=== PATIENT | male | born 1945 | race Caucasian/White ===

== ENCOUNTER 2018-07-15 21:35 | Inpatient (IN) | payer MEDICARE, OTHER | END 2018-07-17 15:28 | disposition home or self-care (01) | LOC: ER 21:35 → ED HOLD 23:52 → PCU 3S 07-16 07:25 | DX: A41.9 Sepsis, unspecified organism (principal); J18.9 Pneumonia, unspecified organism; N39.0 Urinary tract infection, site not specified; R65.20 Severe sepsis without septic shock ==

== ENCOUNTER 2018-09-13 16:15 | Emergency (ER) | payer MEDICARE, OTHER ==
[~2018-09-13] VITALS: Ht 175.3 cm; Wt 86.9 kg
[~2018-09-13 16:15] MED LIST: APIX5TAB3 PO; DILT120C51 PO; TERA5CAP4 PO
[2018-09-13 18:23] VITALS: BP 156/92
== END 2018-09-13 18:18 | disposition home or self-care (01) ==
LOC: ER 16:16
DX: S30.812A Abrasion of penis, initial encounter (principal); N36.8 Other specified disorders of urethra; I48.91 Unspecified atrial fibrillation; I25.10 Atherosclerotic heart disease of native coronary artery without angina pectoris; I25.2 Old myocardial infarction; Z98.61 Coronary angioplasty status; Z88.8 Allergy status to other drugs, medicaments and biological substances; Z79.01 Long term (current) use of anticoagulants; X58.XXXA Exposure to other specified factors, initial encounter; Y93.89 Activity, other specified; Y92.89 Other specified places as the place of occurrence of the external cause; Y99.8 Other external cause status
CPT/HCPCS: 99284

== ENCOUNTER 2018-11-03 15:01 | Emergency (ER) | payer MEDICARE, OTHER ==
[~2018-11-03] VITALS: Ht 175.3 cm; Wt 85.0 kg
[2018-11-03 15:06] VITALS: BP 117/75
[2018-11-03 16:05] LABS: CLARITY,URINE TURBID (Clear); COLOR,URINE YELLOW (Yellow); GLUCOSE, URINE NEGATIVE (Neg); KETONES,URINE NEGATIVE (Neg); LEUKOCYTE ESTERASE ,URINE LARGE (Neg); NITRITES, URINE NEGATIVE (Neg); OCCULT BLOOD,URINE TRACE-INTACT (Neg); PH,URINE >=9.0 (4.8-8.0); PROTEIN,URINE 30 mg/dl (Neg); UA COLLECTION TYPE FOLEY CATH; UROBILINOGEN,URINE 0.2 E.U/dL (0.2-1.0)
[2018-11-03 16:13] LABS: AMORPHOUS PHOSPHATES 3+; BACTERIA,URINE 1+ /HPF (Neg); MUCUS STRANDS NONE SEEN /LPF (Neg); RBC,URINE 0-2 /HPF (0-2); SQUAMOUS EPITHELIAL CELL,UR NONE SEEN /LPF (FEW); TRIPLE PHOSPHATE CRYST 3+ /HPF (NEGATIVE)
--- NOTE | 2018-11-06 09:44 | NUR ---
PT'S PROPERTY DISPOSAL MANAGER CALLED BACK, INFORMED THAT PT HAS A UTI AND THAT ABX's ARE NEEDED. RX FOR BACTRIM DS 160MG PO BID x7 DAYS CALLED INTO KAYLYNN ERICKSON AT [facility] PER REQUEST
== END 2018-11-03 16:46 | disposition home or self-care (01) ==
LOC: ER 15:01
DX: T83.031A Leakage of indwelling urethral catheter, initial encounter (principal); Z46.6 Encounter for fitting and adjustment of urinary device; I48.91 Unspecified atrial fibrillation; I25.10 Atherosclerotic heart disease of native coronary artery without angina pectoris; I25.2 Old myocardial infarction; Z98.61 Coronary angioplasty status; Z79.899 Other long term (current) drug therapy
CPT/HCPCS: 81001; 87088; 99283

== ENCOUNTER 2018-11-03 22:03 | Emergency (ER) | payer MEDICARE, OTHER ==
[~2018-11-03] VITALS: Ht 175.3 cm; Wt 85.8 kg
[2018-11-03 22:07] VITALS: BP 142/85
--- NOTE | 2018-11-03 22:58 | NUR ---
stat lock replaced
== END 2018-11-03 23:08 | disposition home or self-care (01) ==
LOC: ER 22:03
DX: T83.091A Other mechanical complication of indwelling urethral catheter, initial encounter (principal); I48.91 Unspecified atrial fibrillation; I25.2 Old myocardial infarction; I25.10 Atherosclerotic heart disease of native coronary artery without angina pectoris; Z98.61 Coronary angioplasty status; Z79.899 Other long term (current) drug therapy
CPT/HCPCS: 99281

== ENCOUNTER 2018-11-06 10:13 | Inpatient (IN) | payer MEDICARE, OTHER ==
[2018-11-01 11:07] LABS: BASOPHILS % (AUTO) 0.5 % (0-1); EOSINOPHILS # (AUTO) 0.3 X10'3 (0-0.9); EOSINOPHILS % (AUTO) 4.8 % (0-6); HEMATOCRIT 45.1 % (42.0-52.0); LYMPHOCYTES # (AUTO) 1.1 X10'3 (1.1-4.8); LYMPHOCYTES % (AUTO) 17.6 % (21-51); MEAN CORPUSCULAR HEMOGLOBIN 29.6 PG (27.0-31.0); MEAN CORPUSCULAR HGB CONC 33.2 g/dL (33.0-36.5); MEAN CORPUSCULAR VOLUME 89.1 FL (78-98); MEAN PLATELET VOLUME 7.4 FL (7.4-10.4); MONOCYTES # (AUTO) 0.7 X10'3 (0-0.9); MONOCYTES % (AUTO) 10.4 % (2-12); NEUTROPHILS # (AUTO) 4.3 X10'3 (1.8-7.7); NEUTROPHILS % (AUTO) 66.7 % (42-75); PLATELET COUNT 231 X10'3 (140-440); RED BLOOD COUNT 5.07 X10'6 (4.70-6.10); RED CELL DISTRIBUTION WIDTH 14.7 % (11.5-14.5); WHITE BLOOD COUNT 6.5 X10'3 (4.5-11.0)
[2018-11-01 11:14] LABS: PARTIAL THROMBOPLASTIN TIME 29 SECONDS (22-32)
[2018-11-01 11:17] LABS: ALANINE AMINOTRANSFERASE 18 U/L (12-78); ALBUMIN 3.3 G/DL (3.4-5.0); ALBUMIN/GLOBULIN RATIO 0.8 (1.1-1.5); ANION GAP 5 (8-16); ASPARTATE AMINO TRANSFERASE 12 U/L (10-37); BILIRUBIN,TOTAL 0.4 MG/DL (0.1-1.0); BLOOD UREA NITROGEN 20 MG/DL (7-18); CALCIUM 9.1 MG/DL (8.5-10.1); CHLORIDE 105 MMOL/L (99-107); GLUCOSE 100 MG/DL (70-104); POTASSIUM 4.5 MMOL/L (3.5-5.1); SODIUM 140 MMOL/L (135-145); TOTAL CARBON DIOXIDE 30.1 MMOL/L (24-32); TOTAL PROTEIN 7.3 G/DL (6.4-8.2); eGFR 73 ML/MIN
[2018-11-01 11:18] LABS: ALKALINE PHOSPHATASE 83 IU/L (46-116)
[2018-11-06] VITALS (12 sets, daily range): BP systolic 92–147; BP diastolic 59–87
[~2018-11-06] VITALS: Ht 175.3 cm; Wt 80.2 kg
[2018-11-06] MEDS ORDERED: LORazepam 0.5 MG tablet PO PRN (10:35)
[2018-11-06] MEDS ORDERED: diphenhydrAMINE 25mg capsule PO PRN (10:35)
[2018-11-06] MEDS ORDERED: nitroGLYCERIN 0.4mg SUBLingual tab SL PRN (10:35)
[2018-11-06] MEDS ORDERED: LISI-600 PO (10:41)
[2018-11-06] MEDS ORDERED: IBUP1TAB11 PO (10:41)
[2018-11-06] MEDS ORDERED: ASPI-611 PO (10:41)
[2018-11-06] MEDS ORDERED: iohexol 350MG/ML 100ml bottle IV ONE ×2 (12:32→13:00)
[2018-11-06] MEDS ORDERED: LIDOcaine 1% (10mg/ml)w/preservative injection 20ml MDV ONE (12:32)
[2018-11-06] MEDS ORDERED: fentaNYL/PF 50MCG/1 ML 2ML syringe ONE (12:32)
[2018-11-06] MEDS ORDERED: midazolam 2 mg/2 ml injection ONE ×2 (12:32→13:00)
[2018-11-06] MEDS ORDERED: iohexol 350 MG/ML 50ML vial IV ONE (12:32)
[2018-11-06] MEDS ORDERED: HYDROcodone/acetaminophen 10/325mg tab PO PRN ×2 (13:40→17:25)
[2018-11-06] MEDS ORDERED: proCHLORperazine 10 MG/2 ml inj IV PRN (13:40)
[2018-11-06] MEDS ORDERED: ondansetron/PF 4mg/2ml inj IV PRN ×2 (13:40→17:25)
[2018-11-06] MEDS ORDERED: OXAZEpam 15mg capsule PO PRN (13:40)
[2018-11-06] MEDS ORDERED: sodium chloride 0.45% 1,000 ML IV SCH (13:40)
[2018-11-06] MEDS ORDERED: HYDROcodone/acetaminophen 5mg/325mg tablet PO PRN ×2 (13:40→17:25)
[2018-11-06] MEDS ORDERED: normal saline 1000ml 1,000 ML IV SCH (17:23)
[2018-11-06] MEDS ORDERED: potassium Cl 20 mEq SR tablet PO PRN ×2 (17:25)
[2018-11-06] MEDS ORDERED: magnesium 4gm in 100ml NS 100 ML IV PRN (17:25)
[2018-11-06] MEDS ORDERED: magnesium Cl slow-release 64mg tablet PO PRN (17:25)
[2018-11-06] MEDS ORDERED: potassium CL 10mEq/100ml bag 100 ML IV PRN ×2 (17:25)
[2018-11-06] MEDS ORDERED: bisacodyl 10mg suppository rectal RC PRN (17:25)
[2018-11-06] MEDS ORDERED: mag hydrox/Alum hydrox/simeth 30ml oral suspension PO PRN (17:25)
[2018-11-06] MEDS ORDERED: magnesium 2GM in 50ml NS 50 ML IV PRN (17:25)
[2018-11-06] MEDS ORDERED: acetaminophen 325mg tablet PO PRN ×2 (17:25)
[2018-11-06] MEDS ORDERED: metoclopramide 5 mg/ml inj IV PRN (17:25)
[2018-11-06] MEDS ORDERED: magnesium hydroxide 30ml (MOM) UD suspension PO PRN (17:25)
[2018-11-06 20:58] LABS: HEMOGLOBIN A1C 6.1 % (4.5-6.2)
[2018-11-06] MEDS: terazosin 5mg capsule PO SCH (21:00)
[2018-11-06] MEDS ORDERED: temazepam 15mg capsule PO PRN (21:00)
[2018-11-06 21:03] LABS: BASOPHILS % (AUTO) 0.4 % (0-1); EOSINOPHILS # (AUTO) 0.5 X10'3 (0-0.9); EOSINOPHILS % (AUTO) 5.8 % (0-6); HEMATOCRIT 45.4 % (42.0-52.0); HEMOGLOBIN 15.1 g/dl (14.0-17.9); LYMPHOCYTES # (AUTO) 1.6 X10'3 (1.1-4.8); LYMPHOCYTES % (AUTO) 21.3 % (21-51); MEAN CORPUSCULAR HEMOGLOBIN 29.8 PG (27.0-31.0); MEAN CORPUSCULAR HGB CONC 33.3 g/dL (33.0-36.5); MEAN CORPUSCULAR VOLUME 89.5 FL (78-98); MEAN PLATELET VOLUME 7.3 FL (7.4-10.4); MONOCYTES % (AUTO) 12.7 % (2-12); NEUTROPHILS # (AUTO) 4.6 X10'3 (1.8-7.7); NEUTROPHILS % (AUTO) 59.8 % (42-75); PLATELET COUNT 231 X10'3 (140-440); RED BLOOD COUNT 5.08 X10'6 (4.70-6.10); RED CELL DISTRIBUTION WIDTH 14.6 % (11.5-14.5); WHITE BLOOD COUNT 7.7 X10'3 (4.5-11.0)
[2018-11-06 21:04] LABS: PARTIAL THROMBOPLASTIN TIME 29 SECONDS (22-32)
[2018-11-06 21:11] LABS: ALANINE AMINOTRANSFERASE 17 U/L (12-78); ALBUMIN 3.1 G/DL (3.4-5.0); ALBUMIN/GLOBULIN RATIO 0.8 (1.1-1.5); ALKALINE PHOSPHATASE 85 IU/L (46-116); ANION GAP 5 (8-16); ASPARTATE AMINO TRANSFERASE 15 U/L (10-37); BILIRUBIN,TOTAL 0.7 MG/DL (0.1-1.0); BLOOD UREA NITROGEN 17 MG/DL (7-18); BUN/CREATININE RATIO 15.9 (5.4-32.0); CALCIUM 8.6 MG/DL (8.5-10.1); CHLORIDE 106 MMOL/L (99-107); CREATININE 1.07 MG/DL (0.60-1.10); GLUCOSE 107 MG/DL (70-104); MAGNESIUM 1.9 MG/DL (1.5-2.4); PHOSPHORUS 3.2 MG/DL (2.3-4.5); POTASSIUM 3.9 MMOL/L (3.5-5.1); SODIUM 140 MMOL/L (135-145); TOTAL CARBON DIOXIDE 29.1 MMOL/L (24-32); TOTAL PROTEIN 7.1 G/DL (6.4-8.2); eGFR 68 ML/MIN
[2018-11-06 21:14] LABS: HIV ANTIBODY 1&2 RAPID NON-REACTIVE (Neg)
[2018-11-06] MEDS: ampicillin inj 1 GM in normal saline 100ml IV soln 100 ML IV SCH (21:42)
[2018-11-06] MEDS: NYSTATIN CREAM - 30GM TUBE TP SCH (21:52)
[2018-11-06] MEDS: carVEDilol 3.125mg tablet PO SCH (21:55)
[2018-11-06] MEDS: K and/or MAG REPLACEMENT MC SCH (21:56)
[2018-11-07 03:00] VITALS: BP 136/76
[2018-11-07] MEDS: ampicillin inj 1 GM in normal saline 100ml IV soln 100 ML IV SCH ×4 (03:07→20:50)
[2018-11-07 04:59] LABS: HEMATOCRIT 43.8 % (42.0-52.0); HEMOGLOBIN 14.5 g/dl (14.0-17.9); MEAN CORPUSCULAR HEMOGLOBIN 29.5 PG (27.0-31.0); MEAN CORPUSCULAR HGB CONC 33.1 g/dL (33.0-36.5); MEAN CORPUSCULAR VOLUME 89.3 FL (78-98); MEAN PLATELET VOLUME 7.4 FL (7.4-10.4); PLATELET COUNT 221 X10'3 (140-440); RED BLOOD COUNT 4.91 X10'6 (4.70-6.10); RED CELL DISTRIBUTION WIDTH 15.1 % (11.5-14.5)
[2018-11-07 05:13] LABS: ANION GAP 6 (8-16); BLOOD UREA NITROGEN 18 MG/DL (7-18); BUN/CREATININE RATIO 17.5 (5.4-32.0); CALCIUM 8.3 MG/DL (8.5-10.1); CHLORIDE 106 MMOL/L (99-107); CHOL/HDL RATIO 4.6 (0.00-4.99); CHOLESTEROL 146 MG/DL (0-200); CREATININE 1.03 MG/DL (0.60-1.10); GLUCOSE 115 MG/DL (70-104); HDL CHOLESTEROL 32 MG/DL (35-60); LDL CHOLESTEROL 104 MG/DL (50-100); MAGNESIUM 1.9 MG/DL (1.5-2.4); PHOSPHORUS 3.5 MG/DL (2.3-4.5); POTASSIUM 4.3 MMOL/L (3.5-5.1); SODIUM 141 MMOL/L (135-145); TOTAL CARBON DIOXIDE 29.1 MMOL/L (24-32); TRIGLYCERIDES 87 MG/DL (20-135); eGFR 71 ML/MIN
--- NOTE | 2018-11-07 06:19 | NUR ---
Patient in room MED 310. I have received report from Armin and had the opportunity to ask questions and assume patient care.
[2018-11-07 06:30] VITALS: BP 140/80
[2018-11-07] MEDS: K and/or MAG REPLACEMENT MC SCH (06:39)
[2018-11-07] MEDS: atorvastatin 20mg tablet PO SCH (07:09)
[2018-11-07] MEDS: aspirin 81mg tab.chew PO SCH (07:09)
[2018-11-07] MEDS: carVEDilol 3.125mg tablet PO SCH ×2 (07:09→20:31)
[2018-11-07] MEDS: lisinopril 20mg tablet PO SCH (07:10)
[2018-11-07] MEDS: NYSTATIN CREAM - 30GM TUBE TP SCH ×2 (07:13→20:31)
--- NOTE | 2018-11-07 10:22 | NUR ---
Nutrition consult: [facility]x indwelling gonzalez catheter for prostatic hypertrophy per MD note. S/p cath w/ EF 31% and not candidate for CABG at this time per MD note. Pt has no edema/wounds, mild weakness, and PO 90-100% first meals this admit per RN. Hepatitis panel pending. LBM 11/07. No nutrition concerns at this time; will monitor for PO hx this admit. Addendum: 11/07/18 at [address] Amended: Links added.
[2018-11-07 11:00] VITALS: BP 126/69
--- NOTE | 2018-11-07 12:55 | NUR ---
Wound care notified of "groin" wound, went to check with pt and pt's nurse reported it was just redness, and they had already gotten Nystatin for it. WOC not necessary at this time.
--- NOTE | 2018-11-07 16:12 | NUR ---
Problems reprioritized. Patient report given, questions answered & plan of care reviewed with Khoi.
--- NOTE | 2018-11-07 16:13 | NUR ---
Patient in room MED 310. I have received report from Charmaine COHN and had the opportunity to ask questions and assume patient care. Addendum: 11/07/18 at 1659 by Hannah Colon RN agree with previous RN's assessment. will continue to monitor
[2018-11-07 18:00] VITALS: BP 147/91
--- NOTE | 2018-11-07 18:14 | NUR ---
Problems reprioritized. Patient report given, questions answered & plan of care reviewed with Tonya COHN.
--- NOTE | 2018-11-07 18:30 | NUR ---
Patient in room MED 310. I have received report from Khoi COHN and had the opportunity to ask questions and assume patient care.
--- NOTE | 2018-11-07 18:35 | NUR ---
Page sent to Dr Anton informing him of the positive blood culture results from R arm Aerobic bottle positive at 21 hours Gram positive cocci in clusters taken on November 06.
[2018-11-07] MEDS: lactobacillus rhamnosus 10,000 MMU CELLS/CAPSULE PO SCH (20:30)
[2018-11-07] MEDS: apixaban 5mg tablet PO SCH (20:31)
[2018-11-07] MEDS: terazosin 5mg capsule PO SCH (20:31)
[2018-11-07 22:00] VITALS: BP 115/65
--- NOTE | 2018-11-07 22:13 | NUR ---
PAGER ID: [phone] MESSAGE: 310 pt Dada SERRANO has chronic Reyes present on admit but no MD order. Thank you. - Najma [id number]
[2018-11-08] MEDS: ampicillin inj 1 GM in normal saline 100ml IV soln 100 ML IV SCH ×3 (02:30→13:38)
--- NOTE | 2018-11-08 04:30 | NUR ---
PAGER ID: [phone] MESSAGE: 310 pt Dada has positive unilateral blood culture, no wounds anywhere. Do you want a redraw to rule out possible contamination error? Sensitivity not complete yet but on ABX for UTI. Also may need transfer if positive. - Najma [id number]
[2018-11-08 05:21] LABS: HEMATOCRIT 42.2 % (42.0-52.0); HEMOGLOBIN 14.1 g/dl (14.0-17.9); MEAN CORPUSCULAR HEMOGLOBIN 29.9 PG (27.0-31.0); MEAN CORPUSCULAR HGB CONC 33.3 g/dL (33.0-36.5); MEAN CORPUSCULAR VOLUME 89.8 FL (78-98); MEAN PLATELET VOLUME 7.3 FL (7.4-10.4); PLATELET COUNT 213 X10'3 (140-440); RED CELL DISTRIBUTION WIDTH 14.9 % (11.5-14.5); WHITE BLOOD COUNT 7.7 X10'3 (4.5-11.0)
[2018-11-08 05:32] LABS: ALBUMIN 2.9 G/DL (3.4-5.0); ANION GAP 8 (8-16); BLOOD UREA NITROGEN 17 MG/DL (7-18); BUN/CREATININE RATIO 15.2 (5.4-32.0); CALCIUM 8.7 MG/DL (8.5-10.1); CHLORIDE 105 MMOL/L (99-107); CREATININE 1.12 MG/DL (0.60-1.10); GLUCOSE 99 MG/DL (70-104); MAGNESIUM 1.9 MG/DL (1.5-2.4); PHOSPHORUS 3.1 MG/DL (2.3-4.5); POTASSIUM 3.8 MMOL/L (3.5-5.1); SODIUM 140 MMOL/L (135-145); TOTAL CARBON DIOXIDE 26.9 MMOL/L (24-32); eGFR 64 ML/MIN
[2018-11-08 06:00] VITALS: BP 118/91
--- NOTE | 2018-11-08 06:15 | NUR ---
Patient in room MED 310. I have received report from SUKI Castaneda and had the opportunity to ask questions and assume patient care.
--- NOTE | 2018-11-08 06:23 | NUR ---
Problems reprioritized. Patient report given, questions answered & plan of care reviewed with Art RN.
[2018-11-08] MEDS: K and/or MAG REPLACEMENT MC SCH (08:00)
[2018-11-08] MEDS ORDERED: atorvastatin 20mg tablet PO SCH (08:00)
[2018-11-08 08:24] LABS: HBSAG SCREEN Negative (Negative); HEP A AB, IGM Negative (Negative); HEP B CORE AB, IGM Negative (Negative); HEPATITIS C ANTIBODY <0.1 s/co ratio (0.0-0.9)
[2018-11-08] MEDS: lactobacillus rhamnosus 10,000 MMU CELLS/CAPSULE PO SCH ×2 (08:30→20:08)
[2018-11-08] MEDS: aspirin 81mg tab.chew PO SCH (08:30)
[2018-11-08] MEDS: carVEDilol 3.125mg tablet PO SCH ×2 (08:30→20:08)
[2018-11-08] MEDS: lisinopril 20mg tablet PO SCH (08:30)
[2018-11-08] MEDS: apixaban 5mg tablet PO SCH ×2 (08:30→20:08)
[2018-11-08] MEDS: atorvastatin 20mg tablet PO SCH (09:18)
[2018-11-08] MEDS: NYSTATIN CREAM - 30GM TUBE TP SCH ×2 (09:19→20:10)
[2018-11-08] MEDS: dutasteride 0.5 MG capsule PO SCH (09:19)
[2018-11-08 11:00] VITALS: BP 120/73
[2018-11-08 11:17] LABS: % FREE PSA 22.7 % (.); PSA, FREE 2.11 ng/mL
--- NOTE | 2018-11-08 13:32 | NUR ---
Problems reprioritized. Patient report given, questions answered & plan of care reviewed with SUKI JENSEN. PT WAS TRANSFERED WITH ALL PROPERTY TO SURGICAL ROOM 349A
--- NOTE | 2018-11-08 13:37 | NUR ---
Orientee documentation: I have reviewed and agree with all interventions, assessments performed and documented by SUKI Martell .
--- NOTE | 2018-11-08 13:46 | NUR ---
Received report from Jayshree. Pt transfered to room 349-A.
[2018-11-08 14:27] VITALS: BP 108/63
[2018-11-08 18:00] VITALS: BP 136/80
--- NOTE | 2018-11-08 18:10 | NUR ---
Patient in room [facility] 349. I have received report from Charmaine COHN and had the opportunity to ask questions and assume patient care.
--- NOTE | 2018-11-08 18:24 | NUR ---
Problems reprioritized. Patient report given, questions answered & plan of care reviewed with Socorro.
[2018-11-08] MEDS: amoxicillin 250mg capsule PO SCH ×2 (18:48→23:14)
[2018-11-08] MEDS: terazosin 5mg capsule PO SCH (20:08)
[2018-11-09] VITALS: BP 132/81
--- NOTE | 2018-11-09 00:07 | NUR ---
Problems reprioritized. Patient report given, questions answered & plan of care reviewed with Barb COHN.
[2018-11-09 05:18] LABS: HEMATOCRIT 42.7 % (42.0-52.0); HEMOGLOBIN 14.1 g/dl (14.0-17.9); MEAN CORPUSCULAR HEMOGLOBIN 29.8 PG (27.0-31.0); MEAN CORPUSCULAR HGB CONC 33.1 g/dL (33.0-36.5); MEAN CORPUSCULAR VOLUME 89.8 FL (78-98); MEAN PLATELET VOLUME 7.1 FL (7.4-10.4); PLATELET COUNT 217 X10'3 (140-440); RED BLOOD COUNT 4.75 X10'6 (4.70-6.10); RED CELL DISTRIBUTION WIDTH 14.6 % (11.5-14.5); WHITE BLOOD COUNT 8.1 X10'3 (4.5-11.0)
[2018-11-09 05:34] LABS: ALBUMIN 2.9 G/DL (3.4-5.0); ANION GAP 6 (8-16); BLOOD UREA NITROGEN 15 MG/DL (7-18); CALCIUM 8.7 MG/DL (8.5-10.1); CHLORIDE 107 MMOL/L (99-107); GLUCOSE 111 MG/DL (70-104); MAGNESIUM 1.9 MG/DL (1.5-2.4); POTASSIUM 4.4 MMOL/L (3.5-5.1); SODIUM 139 MMOL/L (135-145); TOTAL CARBON DIOXIDE 25.6 MMOL/L (24-32); eGFR 73 ML/MIN
--- NOTE | 2018-11-09 06:39 | NUR ---
Patient in room [facility] 349. I have received report from DYLAN COHN and had the opportunity to ask questions and assume patient care.
[2018-11-09 07:00] VITALS: BP 108/78
[2018-11-09] MEDS: K and/or MAG REPLACEMENT MC SCH (08:00)
[2018-11-09] MEDS: apixaban 5mg tablet PO SCH ×2 (08:17→20:44)
[2018-11-09] MEDS: atorvastatin 20mg tablet PO SCH (08:17)
[2018-11-09] MEDS: aspirin 81mg tab.chew PO SCH (08:17)
[2018-11-09] MEDS: lactobacillus rhamnosus 10,000 MMU CELLS/CAPSULE PO SCH ×2 (08:17→20:44)
[2018-11-09] MEDS: carVEDilol 3.125mg tablet PO SCH ×2 (08:17→20:44)
[2018-11-09] MEDS: lisinopril 20mg tablet PO SCH (08:18)
[2018-11-09] MEDS: amoxicillin 250mg capsule PO SCH ×3 (08:18→23:59)
[2018-11-09] MEDS: dutasteride 0.5 MG capsule PO SCH (08:19)
[2018-11-09] MEDS ORDERED: hydrALAZINE 20mg/ml inj. IV PRN (08:35)
[2018-11-09] MEDS: NYSTATIN CREAM - 30GM TUBE TP SCH ×2 (08:47→20:48)
[2018-11-09 12:04] VITALS: BP 115/60
--- NOTE | 2018-11-09 17:43 | NUR ---
Problems reprioritized. Patient report given, questions answered & plan of care reviewed with jose alberto abrams rn.
--- NOTE | 2018-11-09 18:30 | NUR ---
Patient in room [facility] 349. I have received report from ANNETTE COHN and had the opportunity to ask questions and assume patient care.
[2018-11-09 20:00] VITALS: BP 144/83
[2018-11-09] MEDS: terazosin 5mg capsule PO SCH (20:45)
[2018-11-09 21:07] VITALS: BP 144/83
[2018-11-10] VITALS: BP 112/76
[2018-11-10 05:39] LABS: HEMOGLOBIN 15.2 g/dl (14.0-17.9); MEAN CORPUSCULAR HEMOGLOBIN 30.1 PG (27.0-31.0); MEAN CORPUSCULAR HGB CONC 33.8 g/dL (33.0-36.5); MEAN CORPUSCULAR VOLUME 88.9 FL (78-98); MEAN PLATELET VOLUME 7.3 FL (7.4-10.4); PLATELET COUNT 224 X10'3 (140-440); RED BLOOD COUNT 5.06 X10'6 (4.70-6.10); RED CELL DISTRIBUTION WIDTH 14.8 % (11.5-14.5); WHITE BLOOD COUNT 8.3 X10'3 (4.5-11.0)
[2018-11-10 06:02] LABS: ALBUMIN 3.3 G/DL (3.4-5.0); ANION GAP 8 (8-16); BLOOD UREA NITROGEN 18 MG/DL (7-18); CALCIUM 8.9 MG/DL (8.5-10.1); CHLORIDE 107 MMOL/L (99-107); GLUCOSE 97 MG/DL (70-104); MAGNESIUM 2.1 MG/DL (1.5-2.4); PHOSPHORUS 3.6 MG/DL (2.3-4.5); POTASSIUM 4.3 MMOL/L (3.5-5.1); SODIUM 142 MMOL/L (135-145); TOTAL CARBON DIOXIDE 26.6 MMOL/L (24-32); eGFR 73 ML/MIN
--- NOTE | 2018-11-10 06:20 | NUR ---
Problems reprioritized. Patient report given, questions answered & plan of care reviewed with KENNETH COHN.
--- NOTE | 2018-11-10 06:25 | NUR ---
Patient in room [facility] 349. I have received report from Elliott COHN and had the opportunity to ask questions and assume patient care.
[2018-11-10 07:00] VITALS: BP 99/66
[2018-11-10] MEDS: atorvastatin 20mg tablet PO SCH (07:54)
[2018-11-10] MEDS: amoxicillin 250mg capsule PO SCH ×3 (07:54→23:20)
[2018-11-10] MEDS: lactobacillus rhamnosus 10,000 MMU CELLS/CAPSULE PO SCH ×2 (07:54→22:06)
[2018-11-10] MEDS: aspirin 81mg tab.chew PO SCH (07:54)
[2018-11-10] MEDS: dutasteride 0.5 MG capsule PO SCH (07:54)
[2018-11-10] MEDS: apixaban 5mg tablet PO SCH ×2 (07:54→22:06)
[2018-11-10] MEDS: lisinopril 20mg tablet PO SCH (07:59)
[2018-11-10] MEDS: carVEDilol 3.125mg tablet PO SCH ×2 (07:59→22:10)
[2018-11-10] MEDS: K and/or MAG REPLACEMENT MC SCH (08:00)
[2018-11-10] MEDS: NYSTATIN CREAM - 30GM TUBE TP SCH ×2 (08:00→22:07)
[2018-11-10 12:05] VITALS: BP 136/75
--- NOTE | 2018-11-10 17:55 | NUR ---
patient seen by Dr sharma , and DR Serna,vascular studies were ordered 11/09/18 but not done. bioinformatics research technician paged, stated he will come and do studies. Not done at time of report. patient had visitor today. Stated that he lives in [facility] and has done for 2 years. Tearful at times recalling his memories of [place] when he was 19. private household worker called who spent significant time with patient. Appears stable at time of report.
--- NOTE | 2018-11-10 18:01 | NUR ---
Problems reprioritized. Patient report given, questions answered & plan of care reviewed with Pat COHN.
--- NOTE | 2018-11-10 18:20 | NUR ---
Patient in room [facility] 349. I have received report from Anastasia COHN and had the opportunity to ask questions and assume patient care.
[2018-11-10 20:30] VITALS: BP 162/93
[2018-11-10 22:10] VITALS: BP 148/94
[2018-11-10] MEDS: terazosin 5mg capsule PO SCH (22:10)
[2018-11-11] VITALS: BP 127/70
[2018-11-11 05:30] LABS: HEMATOCRIT 41.5 % (42.0-52.0); HEMOGLOBIN 13.9 g/dl (14.0-17.9); MEAN CORPUSCULAR HEMOGLOBIN 30.1 PG (27.0-31.0); MEAN CORPUSCULAR HGB CONC 33.5 g/dL (33.0-36.5); MEAN CORPUSCULAR VOLUME 89.8 FL (78-98); MEAN PLATELET VOLUME 7.2 FL (7.4-10.4); PLATELET COUNT 218 X10'3 (140-440); RED BLOOD COUNT 4.63 X10'6 (4.70-6.10); RED CELL DISTRIBUTION WIDTH 14.9 % (11.5-14.5); WHITE BLOOD COUNT 7.9 X10'3 (4.5-11.0)
[2018-11-11 05:40] LABS: ALBUMIN 2.8 G/DL (3.4-5.0); ANION GAP 9 (8-16); BLOOD UREA NITROGEN 20 MG/DL (7-18); BUN/CREATININE RATIO 20.2 (5.4-32.0); CALCIUM 8.2 MG/DL (8.5-10.1); CHLORIDE 109 MMOL/L (99-107); CREATININE 0.99 MG/DL (0.60-1.10); GLUCOSE 126 MG/DL (70-104); PHOSPHORUS 3.7 MG/DL (2.3-4.5); SODIUM 142 MMOL/L (135-145); TOTAL CARBON DIOXIDE 24.1 MMOL/L (24-32); eGFR 74 ML/MIN
--- NOTE | 2018-11-11 06:15 | NUR ---
Problems reprioritized. Patient report given, questions answered & plan of care reviewed with Renae COHN.
[2018-11-11 07:30] VITALS: BP 137/87
[2018-11-11] MEDS: aspirin 81mg tab.chew PO SCH (07:53)
[2018-11-11] MEDS: amoxicillin 250mg capsule PO SCH ×2 (07:53→16:10)
[2018-11-11] MEDS: dutasteride 0.5 MG capsule PO SCH (07:53)
[2018-11-11] MEDS: atorvastatin 20mg tablet PO SCH (07:53)
[2018-11-11] MEDS: apixaban 5mg tablet PO SCH (07:54)
[2018-11-11] MEDS: lactobacillus rhamnosus 10,000 MMU CELLS/CAPSULE PO SCH ×2 (07:54→20:42)
[2018-11-11] MEDS: carVEDilol 3.125mg tablet PO SCH ×2 (07:54→20:42)
[2018-11-11] MEDS: lisinopril 20mg tablet PO SCH (07:54)
[2018-11-11] MEDS: K and/or MAG REPLACEMENT MC SCH (07:54)
[2018-11-11] MEDS: NYSTATIN CREAM - 30GM TUBE TP SCH ×2 (07:54→20:43)
[2018-11-11 11:47] VITALS: BP 95/71
--- NOTE | 2018-11-11 18:29 | NUR ---
Problems reprioritized. Patient report given, questions answered & plan of care reviewed with KIMMY Harris RN.
--- NOTE | 2018-11-11 18:37 | NUR ---
Patient in room [facility] 349. I have received report from SUKI OCONNELL and had the opportunity to ask questions and assume patient care. Addendum: 11/11/18 at 1837 by Stacey Terry RN Amended: Links added.
[2018-11-11 20:00] VITALS: BP 138/78
[2018-11-11] MEDS: terazosin 5mg capsule PO SCH (20:42)
[2018-11-12] VITALS: BP 123/64
[2018-11-12] MEDS: amoxicillin 250mg capsule PO SCH ×3 (01:31→16:36)
--- NOTE | 2018-11-12 05:28 | NUR ---
patient noted using the restroom twice to urinate and his gown and dry flow wet/soaked with urine, F/C checked, balloon was deflated and was inflated, f/c functioning appropriately at this time
--- NOTE | 2018-11-12 06:36 | NUR ---
Problems reprioritized. Patient report given, questions answered & plan of care reviewed with SUKI Oconnor. Addendum: 11/12/18 at 0637 by Stacey Terry RN Amended: Links added.
--- NOTE | 2018-11-12 06:45 | NUR ---
Patient in room [facility] 349. I have received report from Keisha Harris RN and had the opportunity to ask questions and assume patient care.
[2018-11-12 07:00] VITALS: BP 145/84
[2018-11-12] MEDS: lisinopril 20mg tablet PO SCH (07:36)
[2018-11-12] MEDS: dutasteride 0.5 MG capsule PO SCH (07:36)
[2018-11-12] MEDS: lactobacillus rhamnosus 10,000 MMU CELLS/CAPSULE PO SCH ×2 (07:37→22:24)
[2018-11-12] MEDS: carVEDilol 3.125mg tablet PO SCH ×2 (07:37→22:23)
[2018-11-12] MEDS: atorvastatin 20mg tablet PO SCH (07:37)
[2018-11-12] MEDS: aspirin 81mg tab.chew PO SCH (07:38)
[2018-11-12] MEDS: K and/or MAG REPLACEMENT MC SCH (07:39)
[2018-11-12] MEDS ORDERED: ringers solution, lacted 1,000 ML IV ONE (08:15)
[2018-11-12] MEDS: NYSTATIN CREAM - 30GM TUBE TP SCH ×2 (08:47→20:00)
[2018-11-12 09:00] LABS: ABG BASE EXCESS -4.1 mmol/L (-2.0-3.0); ABG HCO3 18.9 mmol/L (22.0-26.0); ABG OXYGEN SATURATION 96.7 % (95-98); ABG PCO2 (T) 29.4 mmHg (35.0-45.0); ABG PH (T) 7.425 (7.350-7.450); ABG PO2 (T) 87.7 mmHg (83-108); ALLEN'S TEST Positive; FCOHb 0.9 % (0.5-1.5); FMetHb 0.2 % (0.3-1.12); FO2Hb 95.6 % (94-100); TOTAL HEMOGLOBIN 14.7 G/dl (14.0-17.9)
--- NOTE | 2018-11-12 10:07 | NUR ---
Initial: Pt admit with CAD with abnormal stress test and cardiac catheterization, UTI, and ALOC. Pt on a heart healthy diet with documented 75-100% PO intake throughout LOS meeting nutrient needs. LBM 11/11. No edema or wounds. No nutrition diagnosis at this time. Will continue to follow. Recommendations: 1) Continue with heart healthy diet 2) Wt per rx Addendum: 11/12/18 at [address] Amended: Links added.
--- NOTE | 2018-11-12 10:12 | NUR ---
patient was seen by Dr Palomares, is to be transferred to ACCE unit for further preparation for CABG tomorrow. Report called to Isabel COHN
--- NOTE | 2018-11-12 10:41 | NUR ---
PATIENT TRANSFERRED TO ACCE UNIT , IN STABLE CONDITION.
[2018-11-12 11:00] VITALS: BP 123/71
[2018-11-12 15:00] VITALS: BP 115/46
--- NOTE | 2018-11-12 17:56 | NUR ---
Orienteer documentation: I have reviewed and agree with all interventions, assessments performed and documented by Isabel COHN.
[2018-11-12 18:00] VITALS: BP 139/85
--- NOTE | 2018-11-12 18:15 | NUR ---
Patient in room MED 313. I have received report from SUKI Roberts and had the opportunity to ask questions and assume patient care.
--- NOTE | 2018-11-12 21:15 | NUR ---
CALLED DR. DELANEY TO CLARIFY THAT PATIENT'S SURGERY IS NOT TOMORROW MORNING. HE STATED THAT THE SURGERY WILL BE SUNDAY MORNING.
[2018-11-12 22:00] VITALS: BP 124/63
[2018-11-12] MEDS: terazosin 5mg capsule PO SCH (22:23)
[2018-11-13] MEDS: amoxicillin 250mg capsule PO SCH ×3 (01:17→15:51)
[2018-11-13] MEDS: NYSTATIN CREAM - 30GM TUBE TP SCH ×3 (01:18→20:00)
--- NOTE | 2018-11-13 01:26 | NUR ---
Patient refused nystatin cream applications. He stated that he did not have it for multiple days.
[2018-11-13 02:00] VITALS: BP 110/60
[2018-11-13] MEDS ORDERED: ringers solution, lacted 1,000 ML IV ONE (05:30)
[2018-11-13 05:55] LABS: ANION GAP 7 (8-16); BLOOD UREA NITROGEN 15 MG/DL (7-18); CALCIUM 8.4 MG/DL (8.5-10.1); CHLORIDE 108 MMOL/L (99-107); GLUCOSE 112 MG/DL (70-104); POTASSIUM 3.9 MMOL/L (3.5-5.1); SODIUM 140 MMOL/L (135-145); TOTAL CARBON DIOXIDE 24.8 MMOL/L (24-32); eGFR 73 ML/MIN
[2018-11-13 05:58] LABS: PARTIAL THROMBOPLASTIN TIME 30 SECONDS (22-32)
[2018-11-13] MEDS ORDERED: famotidine 20mg tablet PO ONE (06:00)
[2018-11-13] MEDS ORDERED: LORazepam 2 mg/ml vial IV ONE (06:00)
[2018-11-13 06:01] LABS: HEMATOCRIT 43.1 % (42.0-52.0); HEMOGLOBIN 14.5 g/dl (14.0-17.9); MEAN CORPUSCULAR HEMOGLOBIN 29.8 PG (27.0-31.0); MEAN CORPUSCULAR HGB CONC 33.6 g/dL (33.0-36.5); MEAN CORPUSCULAR VOLUME 88.7 FL (78-98); MEAN PLATELET VOLUME 7.3 FL (7.4-10.4); PLATELET COUNT 215 X10'3 (140-440); RED BLOOD COUNT 4.86 X10'6 (4.70-6.10); RED CELL DISTRIBUTION WIDTH 14.7 % (11.5-14.5); WHITE BLOOD COUNT 8.7 X10'3 (4.5-11.0)
--- NOTE | 2018-11-13 06:29 | NUR ---
Problems reprioritized. Patient report given, questions answered & plan of care reviewed with Art, RN.
[2018-11-13] MEDS: lisinopril 20mg tablet PO SCH (07:54)
[2018-11-13] MEDS: dutasteride 0.5 MG capsule PO SCH (07:54)
[2018-11-13] MEDS: carVEDilol 3.125mg tablet PO SCH ×2 (07:54→20:41)
[2018-11-13] MEDS: lactobacillus rhamnosus 10,000 MMU CELLS/CAPSULE PO SCH ×2 (07:54→20:42)
[2018-11-13] MEDS: atorvastatin 20mg tablet PO SCH (07:54)
[2018-11-13] MEDS: aspirin 81mg tab.chew PO SCH (07:54)
[2018-11-13] MEDS: K and/or MAG REPLACEMENT MC SCH (08:00)
[2018-11-13] MEDS ORDERED: insulin regular, human 100 UNIT in normal saline 100ml IV soln 100 ML IV SCH ×2 (10:16)
[2018-11-13] MEDS ORDERED: insulin glargine (Lantus) pen - multi-dose SQ PRN (10:20)
[2018-11-13] MEDS ORDERED: gabapentin 400mg capsule PO ONE (10:20)
[2018-11-13] MEDS ORDERED: NUT.TX.IMPAIRED DIGEST FXN (Ensure Clear) 237 ML PO ONE (10:20)
[2018-11-13] MEDS ORDERED: MESSAGE TO NURSING PO ONE ×4 (10:20)
[2018-11-13] MEDS ORDERED: dextrose 50%-water 50ml dispensing syringe IV PRN (10:20)
[2018-11-13] MEDS ORDERED: ceFAZolin inj. 2,000 MG in dextrose 5%-water 100 ML IV SCH (10:55)
[2018-11-13 11:00] VITALS: BP 108/75
[2018-11-13 11:21] LABS: HEMOGLOBIN 14.3 g/dl (14.0-17.9); MEAN CORPUSCULAR HEMOGLOBIN 29.7 PG (27.0-31.0); MEAN CORPUSCULAR HGB CONC 33.3 g/dL (33.0-36.5); MEAN CORPUSCULAR VOLUME 89.1 FL (78-98); MEAN PLATELET VOLUME 7.3 FL (7.4-10.4); PLATELET COUNT 225 X10'3 (140-440); RED BLOOD COUNT 4.83 X10'6 (4.70-6.10); RED CELL DISTRIBUTION WIDTH 14.9 % (11.5-14.5); WHITE BLOOD COUNT 8.4 X10'3 (4.5-11.0)
[2018-11-13 11:30] LABS: PARTIAL THROMBOPLASTIN TIME 30 SECONDS (22-32)
[2018-11-13 11:43] LABS: ANION GAP 6 (8-16); BLOOD UREA NITROGEN 16 MG/DL (7-18); BUN/CREATININE RATIO 16.5 (5.4-32.0); CALCIUM 8.2 MG/DL (8.5-10.1); CHLORIDE 108 MMOL/L (99-107); CREATININE 0.97 MG/DL (0.60-1.10); GLUCOSE 101 MG/DL (70-104); POTASSIUM 4.2 MMOL/L (3.5-5.1); SODIUM 140 MMOL/L (135-145); TOTAL CARBON DIOXIDE 25.8 MMOL/L (24-32); eGFR 76 ML/MIN
[2018-11-13 15:00] VITALS: BP 116/61
--- NOTE | 2018-11-13 17:53 | NUR ---
Orientee documentation: I have reviewed and agree with all interventions, assessments performed and documented by SUKI Martell .
[2018-11-13 18:00] VITALS: BP 120/84
--- NOTE | 2018-11-13 18:15 | NUR ---
Patient in room MED 313. I have received report from Claudy RN and SUKI Martell (orienteer) and had the opportunity to ask questions and assume patient care.
--- NOTE | 2018-11-13 18:18 | NUR ---
Problems reprioritized. Patient report given, questions answered & plan of care reviewed with SUKI Doll.
[2018-11-13] MEDS ORDERED: mupirocin 2% ointment 22GM NS SCH (20:00)
[2018-11-13] MEDS ORDERED: metoprolol tartrate 12.5mg (1/2 tablet) PO SCH (20:00)
[2018-11-13] MEDS: terazosin 5mg capsule PO SCH (20:41)
[2018-11-13 22:00] VITALS: BP 132/76
[2018-11-14] VITALS (21 sets, daily range): BP systolic 91–129; BP diastolic 52–74
[2018-11-14] MEDS: amoxicillin 250mg capsule PO SCH ×2 (02:07→08:00)
[2018-11-14] MEDS ORDERED: epiNEPHrine 1 mg/ml inj ONE (05:10)
[2018-11-14] MEDS ORDERED: ceFAZolin 1000mg inj ONE (05:10)
[2018-11-14] MEDS ORDERED: ROPIVAcaine 0.5% (5mg/ml) 30ml vial ONE (05:10)
[2018-11-14] MEDS ORDERED: insulin glargine (Lantus) pen - multi-dose SQ PRN (05:30)
[2018-11-14] MEDS ORDERED: dextrose 50%-water 50ml dispensing syringe IV PRN ×2 (05:30→10:05)
[2018-11-14] MEDS ORDERED: metoprolol tartrate 12.5mg (1/2 tablet) PO SCH (05:30)
[2018-11-14] MEDS ORDERED: famotidine 20mg tablet PO ONE ×2 (05:30→05:45)
[2018-11-14] MEDS ORDERED: mupirocin 2% ointment 22GM NS SCH (05:30)
[2018-11-14] MEDS ORDERED: LORazepam 2 mg/ml vial IV ONE (05:30)
[2018-11-14] MEDS ORDERED: ceFAZolin inj. 2,000 MG in dextrose 5%-water 100 ML IV SCH (05:30)
[2018-11-14] MEDS ORDERED: insulin regular, human 100 UNIT in normal saline 100ml IV soln 100 ML IV SCH ×2 (05:30)
[2018-11-14] MEDS ORDERED: ringers solution, lacted 1,000 ML IV ONE (05:30)
[2018-11-14 06:24] LABS: HEMATOCRIT 41.8 % (42.0-52.0); HEMOGLOBIN 14.1 g/dl (14.0-17.9); MEAN CORPUSCULAR HGB CONC 33.7 g/dL (33.0-36.5); MEAN CORPUSCULAR VOLUME 89.1 FL (78-98); MEAN PLATELET VOLUME 7.3 FL (7.4-10.4); PLATELET COUNT 208 X10'3 (140-440); RED BLOOD COUNT 4.69 X10'6 (4.70-6.10); RED CELL DISTRIBUTION WIDTH 14.7 % (11.5-14.5); WHITE BLOOD COUNT 7.5 X10'3 (4.5-11.0)
--- NOTE | 2018-11-14 06:30 | NUR ---
Patient in room MED 313. I have received report from Jackeline COHN and had the opportunity to ask questions and assume patient care.
[2018-11-14 06:31] LABS: PARTIAL THROMBOPLASTIN TIME 29 SECONDS (22-32)
--- NOTE | 2018-11-14 06:31 | NUR ---
Problems reprioritized. Patient report given, questions answered & plan of care reviewed with SUKI Gomes.
[2018-11-14 06:36] LABS: ALBUMIN 2.9 G/DL (3.4-5.0); ANION GAP 8 (8-16); BLOOD UREA NITROGEN 15 MG/DL (7-18); BUN/CREATININE RATIO 14.2 (5.4-32.0); CALCIUM 8.5 MG/DL (8.5-10.1); CHLORIDE 106 MMOL/L (99-107); CREATININE 1.06 MG/DL (0.60-1.10); GLUCOSE 159 MG/DL (70-104); MAGNESIUM 1.9 MG/DL (1.5-2.4); POTASSIUM 3.9 MMOL/L (3.5-5.1); SODIUM 140 MMOL/L (135-145); TOTAL CARBON DIOXIDE 25.6 MMOL/L (24-32); eGFR 68 ML/MIN
--- NOTE | 2018-11-14 06:49 | NUR ---
pt to [facility]
[2018-11-14] MEDS ORDERED: NORepinephrine bitartrate 8 MG in NS 250 ML BAG (32 mcg/ml) IV ONE (06:52)
[2018-11-14] MEDS ORDERED: aminocaproic acid 250 MG/1 ML inj. ONE ×2 (06:52→07:00)
[2018-11-14] MEDS ORDERED: protamine sulf. 10mg/ml inj. IV ONE (06:52)
[2018-11-14] MEDS ORDERED: sevoflurane 250ml liquid IH ONE (06:52)
[2018-11-14] MEDS ORDERED: midazolam 2 mg/2 ml injection ONE (06:58)
[2018-11-14] MEDS ORDERED: SUFENTANIL CITRATE 50 MCG/ML 2ml ampule IV ONE (06:58)
[2018-11-14] MEDS ORDERED: LIDOcaine 1%/PF 5ML 10 MG/ML VIAL ONE (06:59)
[2018-11-14] MEDS ORDERED: propofol inj 20 ML IV ONE (06:59)
[2018-11-14] MEDS ORDERED: rocuronium 10mg/ml inj IV ONE ×3 (06:59)
[2018-11-14] MEDS ORDERED: sodium bicarbonate (8.4%) inj. 1 MEQ/ML ML ONE (07:00)
[2018-11-14] MEDS ORDERED: phenylephrine 10mg/ml inj. ONE ×2 (07:00→08:27)
[2018-11-14] MEDS ORDERED: heparin 10,000 units/1 ML INJ ONE (07:00)
[2018-11-14] MEDS ORDERED: LIDOcaine 2% (20 mg/ml) 5ml cardiac syringe ONE (07:00)
[2018-11-14] MEDS ORDERED: magnesium sulf 1 GM/2 ML ONE (07:00)
[2018-11-14] MEDS ORDERED: potassium Cl 2 mEq/ml inj IV ONE (07:00)
[2018-11-14] MEDS ORDERED: heparin 1,000 units/ml 10ml inj ONE (07:00)
[2018-11-14] MEDS ORDERED: methylPREDNISolone sod succ 1000mg vial ONE (07:00)
[2018-11-14] MEDS ORDERED: calcium chloride 100 MG/1 ML inj IV ONE (07:00)
[2018-11-14] MEDS ORDERED: albumin (human) 25% 100 ML IV solution IV ONE (07:00)
[2018-11-14] MEDS ORDERED: albumin (Human) 5% 250ml 250 ML IV ONE ×2 (07:31)
[2018-11-14] MEDS ORDERED: ePHEDrine 50MG/ML INJ. ONE (07:32)
[2018-11-14] MEDS ORDERED: LIDOcaine 1% 30ml preserv. free vial ONE (07:52)
[2018-11-14 07:56] LABS: ABG BASE EXCESS -1.6 mmol/L (-2.0-3.0); ABG HCO3 22.4 mmol/L (22.0-26.0); ABG OXYGEN SATURATION 99.5 % (95-98); ABG PCO2 35.7 mmHg (35.0-45.0); ABG PH 7.416 (7.350-7.450); ABG PO2 245.3 mmHg (60.0-100.0); CL (ABG) 105 mmol/L (99-107); FCOHb 0.7 % (0.5-1.5); FMetHb 0.1 % (0.3-1.12); FO2Hb 98.7 % (94-100); GLUCOSE (ABG) 100 mg/dl (70-104); K (ABG) 3.8 mmol/L (3.3-5.1); NA (ABG) 138 mmol/L (135-145); TOTAL HEMOGLOBIN 13.3 G/dl (14.0-17.9)
[2018-11-14] MEDS: lisinopril 20mg tablet PO SCH (08:00)
[2018-11-14] MEDS: carVEDilol 3.125mg tablet PO SCH (08:00)
[2018-11-14] MEDS: K and/or MAG REPLACEMENT MC SCH (08:00)
[2018-11-14] MEDS: lactobacillus rhamnosus 10,000 MMU CELLS/CAPSULE PO SCH (08:00)
[2018-11-14] MEDS: atorvastatin 20mg tablet PO SCH (08:00)
[2018-11-14] MEDS: aspirin 81mg tab.chew PO SCH (08:00)
[2018-11-14] MEDS: dutasteride 0.5 MG capsule PO SCH (08:00)
[2018-11-14] MEDS: NYSTATIN CREAM - 30GM TUBE TP SCH (08:00)
[2018-11-14] MEDS ORDERED: ESOMEPRAZOLE 40 MG VIAL IV ONE (08:00)
[2018-11-14 08:35] LABS: ABG BASE EXCESS -1.3 mmol/L (-2.0-3.0); ABG HCO3 22.6 mmol/L (22.0-26.0); ABG OXYGEN SATURATION 99.4 % (95-98); ABG PCO2 34.7 mmHg (35.0-45.0); ABG PH 7.431 (7.350-7.450); ABG PO2 341.9 mmHg (60.0-100.0); CL (ABG) 101 mmol/L (99-107); FCOHb 0.3 % (0.5-1.5); FO2Hb 99.1 % (94-100); GLUCOSE (ABG) 93 mg/dl (70-104); IONIZED CA (ABG) 0.96 mmol/L (1.03-1.32); K (ABG) 3.7 mmol/L (3.3-5.1); NA (ABG) 134 mmol/L (135-145); TOTAL HEMOGLOBIN 9.8 G/dl (14.0-17.9)
[2018-11-14 09:05] LABS: ACT @ 1.70 U 323 SEC (193-297); ACT @ 2.84 U 448 SEC (260-420); BASELINE ACT 148 SEC (101-148); PATIENT WEIGHT 85.0k KG
[2018-11-14 09:15] LABS: ABG BASE EXCESS VENOUS -3.1 mmol/L; ABG HCO3 VENOUS 21.1 mmol/L; ABG PCO2 VENOUS 34.5 mmHg; ABG PO2 VENOUS 48.9 mmHg; CL (ABG) 101 mmol/L (99-107); FCOHb VENOUS 0.6 %; FHHb VENOUS 17.3 %; FMetHb VENOUS 0.1 %; GLUCOSE (ABG) 101 mg/dl (70-104); IONIZED CA (ABG) 1.01 mmol/L (1.03-1.32); K (ABG) 4.2 mmol/L (3.3-5.1); NA (ABG) 135 mmol/L (135-145); TOTAL HEMOGLOBIN 9.9 G/dl (14.0-17.9)
[2018-11-14 09:41] LABS: ABG BASE EXCESS VENOUS -0.4 mmol/L; ABG HCO3 VENOUS 23.6 mmol/L; ABG PCO2 VENOUS 36.5 mmHg; ABG PO2 VENOUS 46.2 mmHg; CL (ABG) 100 mmol/L (99-107); FCOHb VENOUS 0.6 %; FHHb VENOUS 18.4 %; FMetHb VENOUS 0.1 %; FO2Hb VENOUS 80.9 %; GLUCOSE (ABG) 111 mg/dl (70-104); IONIZED CA (ABG) 1.19 mmol/L (1.03-1.32); K (ABG) 4.2 mmol/L (3.3-5.1); NA (ABG) 135 mmol/L (135-145); TOTAL HEMOGLOBIN 10.3 G/dl (14.0-17.9)
[2018-11-14] MEDS ORDERED: MESSAGE TO NURSING PO ONE (10:00)
[2018-11-14] MEDS ORDERED: NORepinephrine 8mg/ 250ml NS 250 ML IV PRN (10:01)
[2018-11-14] MEDS ORDERED: niCARDipine-NS 40mg/200ml IVPB 200 ML IV PRN (10:01)
[2018-11-14] MEDS ORDERED: ondansetron/PF 4mg/2ml inj IV PRN (10:05)
[2018-11-14] MEDS ORDERED: sodium phosphate inj. 30 MMOL in dextrose 5%-water 250 ML IV PRN (10:05)
[2018-11-14] MEDS ORDERED: sodium phosphate inj. 15 MMOL in dextrose 5%-water 150 ML IV PRN (10:05)
[2018-11-14] MEDS ORDERED: magnesium 4gm in 100ml NS 100 ML IV PRN (10:05)
[2018-11-14] MEDS ORDERED: metoclopramide 5 mg/ml inj IV PRN (10:05)
[2018-11-14] MEDS: insulin regular, human inj. 100 UNITS in normal saline 100ml IV soln 100 ML IV SCH ×2 (10:05)
[2018-11-14] MEDS ORDERED: Neutra Phos packet PO PRN (10:05)
[2018-11-14] MEDS ORDERED: acetaminophen 325mg tablet PO PRN (10:05)
[2018-11-14] MEDS ORDERED: magnesium hydroxide 30ml (MOM) UD suspension PO PRN (10:05)
--- NOTE | 2018-11-14 10:30 | NUR ---
Received to room 2039, accompanied by MDs and surgical crew. Placed on ventilator, to vehicle monitor technician, arterial line and PA line pressure monitored. Chest tubes to suction at 20 cm. Reyes cath to gravity drainage. Dressings are dry and intact. See assessment record. All vasoactive drugs are infusing via central line.
[2018-11-14] MEDS: sodium chloride 0.45% 1,000 ML IV SCH (10:55)
[2018-11-14 11:00] LABS: ABG BASE EXCESS -1.3 mmol/L (-2.0-3.0); ABG HCO3 23.1 mmol/L (22.0-26.0); ABG OXYGEN SATURATION 96.9 % (95-98); ABG PH (T) 7.402 (7.350-7.450); ABG PO2 (T) 92.8 mmHg (83-108); FCOHb 0.2 % (0.5-1.5); FLOW 30 L/min; FMetHb 0.2 % (0.3-1.12); FO2Hb 96.5 % (94-100); MINUTE VOLUME 7 L/min; PEEP 5 cm H2O; RESPIRATORY RATE 12 b/min; RESPIRATORY RATE (OBSERVED) 12 b/min; TIDAL VOLUME 550 mL
[2018-11-14 11:01] LABS: BASOPHILS % (AUTO) 0.2 % (0-1); EOSINOPHILS # (AUTO) 0.2 X10'3 (0-0.9); EOSINOPHILS % (AUTO) 1.3 % (0-6); HEMOGLOBIN 12.5 g/dl (14.0-17.9); LYMPHOCYTES # (AUTO) 0.6 X10'3 (1.1-4.8); LYMPHOCYTES % (AUTO) 5.6 % (21-51); MEAN CORPUSCULAR HEMOGLOBIN 30.2 PG (27.0-31.0); MEAN CORPUSCULAR HGB CONC 33.8 g/dL (33.0-36.5); MEAN CORPUSCULAR VOLUME 89.4 FL (78-98); MEAN PLATELET VOLUME 7.1 FL (7.4-10.4); MONOCYTES # (AUTO) 0.6 X10'3 (0-0.9); NEUTROPHILS # (AUTO) 10.1 X10'3 (1.8-7.7); NEUTROPHILS % (AUTO) 87.9 % (42-75); PLATELET COUNT 162 X10'3 (140-440); RED BLOOD COUNT 4.14 X10'6 (4.70-6.10); RED CELL DISTRIBUTION WIDTH 14.5 % (11.5-14.5); WHITE BLOOD COUNT 11.5 X10'3 (4.5-11.0)
--- NOTE | 2018-11-14 11:05 | NUR ---
Nutrition consult: Pt s/p CABG x 3 today, will need protein education prior to discharge once stable. Addendum: 11/14/18 at [address] Amended: Links added.
[2018-11-14 11:12] LABS: PARTIAL THROMBOPLASTIN TIME 36 SECONDS (22-32)
[2018-11-14 11:14] LABS: ALANINE AMINOTRANSFERASE 13 U/L (12-78); ALBUMIN 3.3 G/DL (3.4-5.0); ALBUMIN/GLOBULIN RATIO 1.4 (1.1-1.5); ALKALINE PHOSPHATASE 52 IU/L (46-116); ANION GAP 10 (8-16); ASPARTATE AMINO TRANSFERASE 16 U/L (10-37); BILIRUBIN,TOTAL 1.2 MG/DL (0.1-1.0); BLOOD UREA NITROGEN 14 MG/DL (7-18); BUN/CREATININE RATIO 15.9 (5.4-32.0); CALCIUM 8.5 MG/DL (8.5-10.1); CHLORIDE 106 MMOL/L (99-107); CREATININE 0.88 MG/DL (0.60-1.10); GLUCOSE 138 MG/DL (70-104); MAGNESIUM 2.9 MG/DL (1.5-2.4); PHOSPHORUS 2.3 MG/DL (2.3-4.5); POTASSIUM 4.3 MMOL/L (3.5-5.1); SODIUM 140 MMOL/L (135-145); TOTAL CARBON DIOXIDE 23.9 MMOL/L (24-32); TOTAL PROTEIN 5.7 G/DL (6.4-8.2); eGFR 85 ML/MIN
[2018-11-14] MEDS: albumin (Human) 5% 250ml 250 ML IV PRN ×4 (11:33→16:00)
[2018-11-14] MEDS: potassium Cl 20mEq/100mL bag 100 ML IV PRN ×2 (11:49→17:10)
[2018-11-14] MEDS: nitroGLYCERIN-Tridil 50MG/D5W 250 ML IV SCH (12:41)
[2018-11-14] MEDS: insulin Lispro (HumaLOG) vial - multi-dose SQ SCH ×2 (12:42→20:28)
[2018-11-14] MEDS: gabapentin 300mg capsule PO SCH ×2 (12:45→20:55)
[2018-11-14 13:25] LABS: ACTIVATED CLOTTING TIME 143 SEC (101-148)
[2018-11-14] MEDS: morphine 4 MG/ML inj SYRINge IV PRN ×3 (13:52→21:07)
--- NOTE | 2018-11-14 14:00 | NUR ---
Pt is asleep, intubated, arousing at times to pain, follows verbal command. Dr. Abraham arrived on unit and assessed pt, updated on pt condition, order received to give max of 4 bottles of albumin for CI < 2.0. will continue to monitor.
[2018-11-14] MEDS: mupirocin 2% nasal ointment 1gm UD NS SCH ×2 (15:47→20:55)
[2018-11-14] MEDS: ceFAZolin 1GM/D5W- ADD-VANTAGE 50 ML IV SCH (15:50)
[2018-11-14 16:25] LABS: BASOPHILS % (AUTO) 0 % (0-1); EOSINOPHILS % (AUTO) 0.2 % (0-6); HEMATOCRIT 32.6 % (42.0-52.0); HEMOGLOBIN 10.7 g/dl (14.0-17.9); LYMPHOCYTES # (AUTO) 0.5 X10'3 (1.1-4.8); LYMPHOCYTES % (AUTO) 4.1 % (21-51); MEAN CORPUSCULAR HEMOGLOBIN 29.8 PG (27.0-31.0); MEAN CORPUSCULAR HGB CONC 32.7 g/dL (33.0-36.5); MEAN CORPUSCULAR VOLUME 91.1 FL (78-98); MEAN PLATELET VOLUME 7.1 FL (7.4-10.4); MONOCYTES # (AUTO) 0.3 X10'3 (0-0.9); NEUTROPHILS # (AUTO) 10.4 X10'3 (1.8-7.7); NEUTROPHILS % (AUTO) 92.7 % (42-75); PLATELET COUNT 142 X10'3 (140-440); RED BLOOD COUNT 3.57 X10'6 (4.70-6.10); RED CELL DISTRIBUTION WIDTH 14.6 % (11.5-14.5); WHITE BLOOD COUNT 11.2 X10'3 (4.5-11.0)
[2018-11-14 16:40] LABS: ALBUMIN 3.7 G/DL (3.4-5.0); ANION GAP 9 (8-16); BLOOD UREA NITROGEN 15 MG/DL (7-18); BUN/CREATININE RATIO 15.2 (5.4-32.0); CALCIUM 7.8 MG/DL (8.5-10.1); CHLORIDE 111 MMOL/L (99-107); CREATININE 0.99 MG/DL (0.60-1.10); GLUCOSE 163 MG/DL (70-104); MAGNESIUM 2.4 MG/DL (1.5-2.4); PHOSPHORUS 3.1 MG/DL (2.3-4.5); POTASSIUM 4.2 MMOL/L (3.5-5.1); SODIUM 143 MMOL/L (135-145); TOTAL CARBON DIOXIDE 23.1 MMOL/L (24-32); eGFR 74 ML/MIN
--- NOTE | 2018-11-14 18:30 | NUR ---
Patient in room ICU 2039. I have received report from Coty COHN and had the opportunity to ask questions and assume patient care.
--- NOTE | 2018-11-14 18:30 | NUR ---
Problems reprioritized. Patient report given, questions answered & plan of care reviewed with SUKI Knight.
--- NOTE | 2018-11-14 18:40 | NUR ---
@2312 pt received 2mg morphine. intended to give full dose of 4mg for grimacing while intubated, however pt did not tolerate. pt became mildly sedated after 2mg administered. 2mg wasted with Coty Alvarado RN.
[2018-11-14] MEDS: DOPamine 400mg/D5W 250ml 250 ML IV SCH (19:09)
[2018-11-14] MEDS: docusate sod 100mg capsule PO SCH (20:00)
[2018-11-14 20:50] LABS: ABG BASE EXCESS -2.8 mmol/L (-2.0-3.0); ABG HCO3 21.7 mmol/L (22.0-26.0); ABG OXYGEN SATURATION 95.7 % (95-98); ABG PCO2 (T) 36.2 mmHg (35.0-45.0); ABG PH (T) 7.394 (7.350-7.450); ABG PO2 (T) 83.6 mmHg (83-108); FCOHb 0.3 % (0.5-1.5); FMetHb 0.3 % (0.3-1.12); FO2Hb 95.1 % (94-100); MINUTE VOLUME 9 L/min; PATIENT TEMPERATURE 36.7; PEEP 5 cm H2O; RESPIRATORY RATE (OBSERVED) 15 b/min
--- NOTE | 2018-11-14 21:00 | NUR ---
Extubated pt w/RT to 4LNC without incident. Weak cough, encouraged flutter valve and IS use. Morphine IV given for pain level of 7/10 per patient statement. Hypotensive, titrating Levophed to keep MAP greater than 65. Will continue to monitor.
[2018-11-15] VITALS (24 sets, daily range): BP systolic 90–130; BP diastolic 6–66
[2018-11-15] MEDS: ceFAZolin 1GM/D5W- ADD-VANTAGE 50 ML IV SCH ×3 (00:12→15:50)
[2018-11-15] MEDS: morphine 4 MG/ML inj SYRINge IV PRN ×4 (01:14→12:16)
[2018-11-15 04:04] LABS: BASOPHILS % (AUTO) 0 % (0-1); EOSINOPHILS % (AUTO) 0 % (0-6); HEMATOCRIT 30.4 % (42.0-52.0); HEMOGLOBIN 10.1 g/dl (14.0-17.9); LYMPHOCYTES # (AUTO) 0.6 X10'3 (1.1-4.8); MEAN CORPUSCULAR HEMOGLOBIN 29.9 PG (27.0-31.0); MEAN CORPUSCULAR VOLUME 90.5 FL (78-98); MEAN PLATELET VOLUME 7.7 FL (7.4-10.4); MONOCYTES % (AUTO) 6.3 % (2-12); NEUTROPHILS # (AUTO) 14.2 X10'3 (1.8-7.7); NEUTROPHILS % (AUTO) 89.7 % (42-75); PLATELET COUNT 138 X10'3 (140-440); RED BLOOD COUNT 3.36 X10'6 (4.70-6.10); RED CELL DISTRIBUTION WIDTH 14.8 % (11.5-14.5); WHITE BLOOD COUNT 15.9 X10'3 (4.5-11.0)
[2018-11-15 04:16] LABS: ALANINE AMINOTRANSFERASE 13 U/L (12-78); ALBUMIN 3.2 G/DL (3.4-5.0); ALBUMIN/GLOBULIN RATIO 1.3 (1.1-1.5); ALKALINE PHOSPHATASE 46 IU/L (46-116); ANION GAP 8 (8-16); ASPARTATE AMINO TRANSFERASE 15 U/L (10-37); BLOOD UREA NITROGEN 15 MG/DL (7-18); BUN/CREATININE RATIO 15.6 (5.4-32.0); CALCIUM 8.1 MG/DL (8.5-10.1); CHLORIDE 113 MMOL/L (99-107); CREATININE 0.96 MG/DL (0.60-1.10); GLUCOSE 144 MG/DL (70-104); MAGNESIUM 2.1 MG/DL (1.5-2.4); PARTIAL THROMBOPLASTIN TIME 34 SECONDS (22-32); PHOSPHORUS 4.2 MG/DL (2.3-4.5); POTASSIUM 4.3 MMOL/L (3.5-5.1); SODIUM 143 MMOL/L (135-145); TOTAL CARBON DIOXIDE 22.4 MMOL/L (24-32); TOTAL PROTEIN 5.6 G/DL (6.4-8.2); eGFR 77 ML/MIN
[2018-11-15] MEDS: potassium Cl 20mEq/100mL bag 100 ML IV PRN ×2 (04:26→05:49)
--- NOTE | 2018-11-15 05:13 | NUR ---
Dangled pt at side of bed, tolerated well but needs encouragement to cough and deep breath as well as follow sternal precautions. Not complaints of dizziness but hypotensive, titrating Levophed to keep MAP greater than 65. Returned to bed w/2 person assist.
--- NOTE | 2018-11-15 06:30 | NUR ---
Patient in room ICU 2039. I have received report from Antonia Montalvo RN and had the opportunity to ask questions and assume patient care.
--- NOTE | 2018-11-15 06:36 | NUR ---
Problems reprioritized. Patient report given, questions answered & plan of care reviewed with Avril COHN.
[2018-11-15] MEDS: metoprolol tartrate 12.5mg (1/2 tablet) PO SCH ×2 (07:49→20:00)
[2018-11-15] MEDS: K and/or MAG REPLACEMENT MC SCH (07:50)
[2018-11-15] MEDS: magnesium 2GM in 50ml NS 50 ML IV PRN (08:15)
[2018-11-15] MEDS: atorvastatin 10mg tablet PO SCH (08:30)
[2018-11-15] MEDS: mupirocin 2% nasal ointment 1gm UD NS SCH ×2 (08:30→20:33)
[2018-11-15] MEDS: atorvastatin 20mg tablet PO SCH (08:31)
[2018-11-15] MEDS: docusate sod 100mg capsule PO SCH ×2 (08:31→20:33)
[2018-11-15] MEDS: gabapentin 300mg capsule PO SCH ×3 (08:31→20:33)
[2018-11-15] MEDS: aspirin 325mg tablet, delayed-release (Ecotrin) PO SCH (08:31)
[2018-11-15] MEDS: HYDROcodone/acetaminophen 10/325mg tab PO PRN ×3 (08:32→22:00)
[2018-11-15] MEDS: DOPamine 400mg/D5W 250ml 250 ML IV SCH (09:55)
[2018-11-15] MEDS: insulin regular, human inj. 100 UNITS in normal saline 100ml IV soln 100 ML IV SCH ×2 (10:05)
[2018-11-15 12:58] LABS: MAGNESIUM 2.6 MG/DL (1.5-2.4)
[2018-11-15] MEDS ORDERED: MESSAGE TO PHARMACY PO ONE (17:40)
[2018-11-15] MEDS ORDERED: glucagon, human recombinant 1mg kit SUBCUT PRN (17:40)
--- NOTE | 2018-11-15 18:39 | NUR ---
Problems reprioritized. Patient report given, questions answered & plan of care reviewed with Adiel Elmore RN.
--- NOTE | 2018-11-15 20:03 | NUR ---
i called Dr Abraham at this time to let him know that pt afib has increased in rate up into 120's and 130's. he gave order to start amiodarone drip per protocol. he stated to hold beta blaise due to amount of levo needed at this time. orders entered continue to monitor.
[2018-11-15] MEDS ORDERED: amiodarone 150mg/dext, iso-os 100 ML IV ONE (20:05)
[2018-11-15] MEDS: lactobacillus rhamnosus 10,000 MMU CELLS/CAPSULE PO SCH (20:33)
[2018-11-15] MEDS: amiodarone/D5 360MG/200ML BAG 200 ML IV PRN (20:43)
[2018-11-16] VITALS (24 sets, daily range): BP systolic 89–127; BP diastolic 48–75
[2018-11-16] MEDS: ceFAZolin 1GM/D5W- ADD-VANTAGE 50 ML IV SCH (00:06)
[2018-11-16] MEDS: DOPamine 400mg/D5W 250ml 250 ML IV SCH (00:07)
[2018-11-16] MEDS: amiodarone/D5 360MG/200ML BAG 200 ML IV PRN (03:10)
[2018-11-16] MEDS: sodium chloride 0.45% 1,000 ML IV SCH (03:10)
[2018-11-16 03:37] LABS: ALBUMIN 3.1 G/DL (3.4-5.0); ANION GAP 8 (8-16); BASOPHILS % (AUTO) 0 % (0-1); BLOOD UREA NITROGEN 24 MG/DL (7-18); CALCIUM 8.1 MG/DL (8.5-10.1); CHLORIDE 108 MMOL/L (99-107); CREATININE 1.26 MG/DL (0.60-1.10); EOSINOPHILS % (AUTO) 0 % (0-6); GLUCOSE 191 MG/DL (70-104); HEMOGLOBIN 9.7 g/dl (14.0-17.9); LYMPHOCYTES # (AUTO) 0.6 X10'3 (1.1-4.8); LYMPHOCYTES % (AUTO) 3.3 % (21-51); MAGNESIUM 2.4 MG/DL (1.5-2.4); MEAN CORPUSCULAR HEMOGLOBIN 30.2 PG (27.0-31.0); MEAN CORPUSCULAR HGB CONC 33.3 g/dL (33.0-36.5); MEAN CORPUSCULAR VOLUME 90.8 FL (78-98); MEAN PLATELET VOLUME 7.7 FL (7.4-10.4); MONOCYTES # (AUTO) 1.8 X10'3 (0-0.9); MONOCYTES % (AUTO) 9.2 % (2-12); NEUTROPHILS # (AUTO) 17.1 X10'3 (1.8-7.7); NEUTROPHILS % (AUTO) 87.5 % (42-75); PHOSPHORUS 3.4 MG/DL (2.3-4.5); PLATELET COUNT 165 X10'3 (140-440); POTASSIUM 5.4 MMOL/L (3.5-5.1); RED BLOOD COUNT 3.19 X10'6 (4.70-6.10); RED CELL DISTRIBUTION WIDTH 15.3 % (11.5-14.5); SODIUM 138 MMOL/L (135-145); TOTAL CARBON DIOXIDE 22.3 MMOL/L (24-32); WHITE BLOOD COUNT 19.5 X10'3 (4.5-11.0); eGFR 56 ML/MIN
--- NOTE | 2018-11-16 06:40 | NUR ---
Problems reprioritized. Patient report given, questions answered & plan of care reviewed with Valencia COHN.
--- NOTE | 2018-11-16 06:41 | NUR ---
Patient in room ICU 2039. I have received report from SUKI Chun and had the opportunity to ask questions and assume patient care.
[2018-11-16] MEDS: pantoprazole 40mg Tablet.DR PO SCH (07:40)
[2018-11-16] MEDS: metoprolol tartrate 12.5mg (1/2 tablet) PO SCH ×2 (07:40→21:08)
[2018-11-16] MEDS: aspirin 325mg tablet, delayed-release (Ecotrin) PO SCH (07:40)
[2018-11-16] MEDS: docusate sod 100mg capsule PO SCH ×2 (07:40→20:17)
[2018-11-16] MEDS: gabapentin 300mg capsule PO SCH (07:40)
[2018-11-16] MEDS: lactobacillus rhamnosus 10,000 MMU CELLS/CAPSULE PO SCH ×2 (07:40→20:17)
[2018-11-16] MEDS: atorvastatin 10mg tablet PO SCH (07:40)
[2018-11-16] MEDS: K and/or MAG REPLACEMENT MC SCH (08:00)
[2018-11-16] MEDS: insulin Lispro (HumaLOG) vial - multi-dose SQ SCH ×3 (08:34→18:46)
[2018-11-16] MEDS: nitroGLYCERIN-Tridil 50MG/D5W 250 ML IV SCH (10:01)
[2018-11-16] MEDS: insulin regular, human inj. 100 UNITS in normal saline 100ml IV soln 100 ML IV SCH ×2 (10:05)
[2018-11-16] MEDS ORDERED: amiodarone 200mg tablet PO ONE (10:45)
--- NOTE | 2018-11-16 18:17 | NUR ---
Problems reprioritized. Patient report given, questions answered & plan of care reviewed with SUKI Chun.
--- NOTE | 2018-11-16 18:30 | NUR ---
Patient in room ICU 2039. I have received report from Valencia COHN and had the opportunity to ask questions and assume patient care.
[2018-11-16] MEDS: amiodarone 200mg tablet PO SCH (20:16)
[2018-11-16] MEDS: HYDROcodone/acetaminophen 10/325mg tab PO PRN (20:17)
[2018-11-17] VITALS (17 sets, daily range): BP systolic 87–114; BP diastolic 47–83
[2018-11-17] MEDS: HYDROcodone/acetaminophen 10/325mg tab PO PRN (03:04)
--- NOTE | 2018-11-17 06:49 | NUR ---
Problems reprioritized. Patient report given, questions answered & plan of care reviewed with Day SHift RN.
[2018-11-17 07:33] LABS: BASOPHILS # (AUTO) 0.1 X10'3 (0-0.2); BASOPHILS % (AUTO) 0.5 % (0-1); EOSINOPHILS # (AUTO) 0.1 X10'3 (0-0.9); EOSINOPHILS % (AUTO) 0.9 % (0-6); HEMATOCRIT 27.2 % (42.0-52.0); LYMPHOCYTES # (AUTO) 1.5 X10'3 (1.1-4.8); LYMPHOCYTES % (AUTO) 12.2 % (21-51); MEAN CORPUSCULAR HGB CONC 33.1 g/dL (33.0-36.5); MEAN CORPUSCULAR VOLUME 90.7 FL (78-98); MEAN PLATELET VOLUME 7.6 FL (7.4-10.4); MONOCYTES # (AUTO) 1.4 X10'3 (0-0.9); MONOCYTES % (AUTO) 11.8 % (2-12); NEUTROPHILS % (AUTO) 74.6 % (42-75); PLATELET COUNT 137 X10'3 (140-440); RED CELL DISTRIBUTION WIDTH 15.6 % (11.5-14.5); WHITE BLOOD COUNT 12.1 X10'3 (4.5-11.0)
[2018-11-17 07:43] LABS: ALBUMIN 2.8 G/DL (3.4-5.0); ANION GAP 5 (8-16); BLOOD UREA NITROGEN 29 MG/DL (7-18); BUN/CREATININE RATIO 27.4 (5.4-32.0); CHLORIDE 107 MMOL/L (99-107); CREATININE 1.06 MG/DL (0.60-1.10); GLUCOSE 114 MG/DL (70-104); MAGNESIUM 2.1 MG/DL (1.5-2.4); PHOSPHORUS 2.4 MG/DL (2.3-4.5); POTASSIUM 4.6 MMOL/L (3.5-5.1); SODIUM 139 MMOL/L (135-145); TOTAL CARBON DIOXIDE 26.6 MMOL/L (24-32); eGFR 68 ML/MIN
[2018-11-17] MEDS: K and/or MAG REPLACEMENT MC SCH (08:00)
[2018-11-17] MEDS: aspirin 325mg tablet, delayed-release (Ecotrin) PO SCH (08:28)
[2018-11-17] MEDS: docusate sod 100mg capsule PO SCH ×2 (08:28→20:42)
[2018-11-17] MEDS: furosemide 40mg/4ml inj IV SCH (08:28)
[2018-11-17] MEDS: lactobacillus rhamnosus 10,000 MMU CELLS/CAPSULE PO SCH ×2 (08:28→20:42)
[2018-11-17] MEDS: pantoprazole 40mg Tablet.DR PO SCH (08:28)
[2018-11-17] MEDS: amiodarone 200mg tablet PO SCH ×2 (08:29→20:42)
[2018-11-17] MEDS: metoprolol tartrate 12.5mg (1/2 tablet) PO SCH ×2 (08:29→20:00)
[2018-11-17] MEDS: atorvastatin 10mg tablet PO SCH (08:29)
--- NOTE | 2018-11-17 08:45 | NUR ---
Cardiac surgeon notified at bedside regarding ST elevation in pt.'s 5 lead tracing post chest tube removal.
[2018-11-17] MEDS: insulin Lispro (HumaLOG) vial - multi-dose SQ SCH ×2 (08:53→13:29)
[2018-11-17] MEDS: insulin regular, human inj. 100 UNITS in normal saline 100ml IV soln 100 ML IV SCH ×2 (10:05)
--- NOTE | 2018-11-17 10:55 | NUR ---
Nutrition consult: Pt seen by RD for written/verbal CABG ed w/ RD contact information provided. Pt declined additional proteins at this time. No teeth but PO 75-100% meals meeting needs and enjoys food textures. [facility] 11/14 x3. Will continue to monitor. Recommendations: 1) Continue carb controlled diet per MD 2) Wt per rx Addendum: 11/17/18 at [address] Amended: Links added.
--- NOTE | 2018-11-17 15:30 | NUR ---
Patient in room MED 307. I have received report from SUKI Hall and had the opportunity to ask questions and assume patient care.
--- NOTE | 2018-11-17 17:16 | NUR ---
Orienteer documentation: I have reviewed and agree with all interventions, assessments performed and documented by Isabel COHN.
--- NOTE | 2018-11-17 18:15 | NUR ---
Patient in room MED 313. I have received report from SUKI Ashley and had the opportunity to ask questions and assume patient care.
--- NOTE | 2018-11-17 18:39 | NUR ---
Problems reprioritized. Patient report given, questions answered & plan of care reviewed with SUKI Viveros.
--- NOTE | 2018-11-17 18:49 | NUR ---
Patient in room MED 307. I have received report from Dion COHN and had the opportunity to ask questions and assume patient care.
[2018-11-17] MEDS: apixaban 5mg tablet PO SCH (20:42)
--- NOTE | 2018-11-17 22:59 | NUR ---
Patient had 4 beat run of vtach, started mg 2 gram iv infusion per protocol, mg level 2.1
[2018-11-17] MEDS: magnesium 2GM in 50ml NS 50 ML IV PRN (23:50)
--- NOTE | 2018-11-18 01:30 | NUR ---
patient has neuro deficits, patient has difficulty following basic directions, incentive spirometer needs further /continuing ed/reminders Addendum: 11/18/18 at 0140 by Effie Siu RN Amended: Links added.
[2018-11-18 02:00] VITALS: BP 115/62
--- NOTE | 2018-11-18 04:37 | NUR ---
Orienteer documentation: I have reviewed and agree with all interventions, assessments performed and documented by Effie Siu RN. Orienteer Medication Administration: For this medication-pass time frame, all medication were reviewed, dispensed, administered and documented per hospital policy by SUKI Chou.
[2018-11-18 06:00] VITALS: BP 106/73
[2018-11-18 06:33] LABS: BASOPHILS % (AUTO) 0.2 % (0-1); EOSINOPHILS # (AUTO) 0.5 X10'3 (0-0.9); EOSINOPHILS % (AUTO) 4.9 % (0-6); HEMATOCRIT 27.5 % (42.0-52.0); HEMOGLOBIN 9.4 g/dl (14.0-17.9); LYMPHOCYTES # (AUTO) 1.1 X10'3 (1.1-4.8); LYMPHOCYTES % (AUTO) 11.6 % (21-51); MEAN CORPUSCULAR HEMOGLOBIN 31.2 PG (27.0-31.0); MEAN CORPUSCULAR HGB CONC 34.2 g/dL (33.0-36.5); MEAN CORPUSCULAR VOLUME 91.1 FL (78-98); MONOCYTES # (AUTO) 1.3 X10'3 (0-0.9); MONOCYTES % (AUTO) 13.1 % (2-12); NEUTROPHILS # (AUTO) 6.8 X10'3 (1.8-7.7); NEUTROPHILS % (AUTO) 70.2 % (42-75); PLATELET COUNT 147 X10'3 (140-440); RED BLOOD COUNT 3.02 X10'6 (4.70-6.10); RED CELL DISTRIBUTION WIDTH 14.9 % (11.5-14.5); WHITE BLOOD COUNT 9.7 X10'3 (4.5-11.0)
--- NOTE | 2018-11-18 06:34 | NUR ---
Problems reprioritized. Patient report given, questions answered & plan of care reviewed with ART RN.
[2018-11-18 06:49] LABS: ALBUMIN 2.7 G/DL (3.4-5.0); ANION GAP 10 (8-16); BLOOD UREA NITROGEN 27 MG/DL (7-18); BUN/CREATININE RATIO 29.3 (5.4-32.0); CALCIUM 7.9 MG/DL (8.5-10.1); CHLORIDE 106 MMOL/L (99-107); CREATININE 0.92 MG/DL (0.60-1.10); GLUCOSE 125 MG/DL (70-104); MAGNESIUM 2.2 MG/DL (1.5-2.4); PHOSPHORUS 2.4 MG/DL (2.3-4.5); SODIUM 141 MMOL/L (135-145); TOTAL CARBON DIOXIDE 25.1 MMOL/L (24-32); eGFR 81 ML/MIN
[2018-11-18] MEDS: apixaban 5mg tablet PO SCH ×2 (07:58→20:26)
[2018-11-18] MEDS: lactobacillus rhamnosus 10,000 MMU CELLS/CAPSULE PO SCH ×2 (07:58→20:25)
[2018-11-18] MEDS: aspirin 81mg tablet.DR PO SCH (07:58)
[2018-11-18] MEDS: atorvastatin 10mg tablet PO SCH (07:58)
[2018-11-18] MEDS: amiodarone 200mg tablet PO SCH ×2 (07:58→20:25)
[2018-11-18] MEDS: docusate sod 100mg capsule PO SCH ×2 (07:58→20:25)
[2018-11-18] MEDS: furosemide 40mg/4ml inj IV SCH (07:59)
[2018-11-18] MEDS: metoprolol tartrate 12.5mg (1/2 tablet) PO SCH ×2 (07:59→20:26)
[2018-11-18] MEDS: pantoprazole 40mg Tablet.DR PO SCH (07:59)
[2018-11-18] MEDS: K and/or MAG REPLACEMENT MC SCH (08:00)
--- NOTE | 2018-11-18 08:04 | NUR ---
Pt heart rate was elevated this am. Pt was crying and talking about how to deal with "all the bodies". It was clear that this pt was having a flashback from [place]. Pt was assured that he was safe, but we allowed him to process his fears.
[2018-11-18] MEDS: potassium Cl 20 mEq SR tablet PO PRN (10:39)
[2018-11-18 11:00] VITALS: BP 107/64
[2018-11-18 17:55] VITALS: BP 111/81
--- NOTE | 2018-11-18 19:55 | NUR ---
Patient in room MED 313. I have received report from Art RN and had the opportunity to ask questions and assume patient care.
--- NOTE | 2018-11-18 20:04 | NUR ---
Patient in room MED 313. I have received report from Art RN and had the opportunity to ask questions and assume patient care.
[2018-11-18 22:00] VITALS: BP 115/71
[2018-11-19] MEDS: magnesium 2GM in 50ml NS 50 ML IV PRN (01:11)
--- NOTE | 2018-11-19 05:30 | NUR ---
Orienteer documentation: I have reviewed and agree with all interventions, assessments performed and documented by Effie Siu RN. Orienteer Medication Administration: For this medication-pass time frame, all medication were reviewed, dispensed, administered and documented per hospital policy by Effie Siu RN.
[2018-11-19 06:00] VITALS: BP 109/60
--- NOTE | 2018-11-19 06:28 | NUR ---
Problems reprioritized. Patient report given,Leah COHN questions answered & plan of care reviewed with .
--- NOTE | 2018-11-19 06:30 | NUR ---
Patient in room MED 313. I have received report from USKI Viveros and had the opportunity to ask questions and assume patient care.
[2018-11-19 06:33] LABS: MAGNESIUM 2.3 MG/DL (1.5-2.4); PHOSPHORUS 2.8 MG/DL (2.3-4.5); POTASSIUM 4.4 MMOL/L (3.5-5.1)
[2018-11-19] MEDS: aspirin 81mg tablet.DR PO SCH (07:21)
[2018-11-19] MEDS: apixaban 5mg tablet PO SCH ×2 (07:21→19:59)
[2018-11-19] MEDS: docusate sod 100mg capsule PO SCH ×2 (07:21→19:59)
[2018-11-19] MEDS: pantoprazole 40mg Tablet.DR PO SCH (07:21)
[2018-11-19] MEDS: lactobacillus rhamnosus 10,000 MMU CELLS/CAPSULE PO SCH ×2 (07:23→19:59)
[2018-11-19] MEDS: metoprolol tartrate 12.5mg (1/2 tablet) PO SCH ×2 (07:23→20:03)
[2018-11-19] MEDS: furosemide 40mg/4ml inj IV SCH ×2 (07:23→08:00)
[2018-11-19] MEDS: amiodarone 200mg tablet PO SCH ×2 (07:23→20:00)
[2018-11-19] MEDS: atorvastatin 10mg tablet PO SCH (07:23)
[2018-11-19] MEDS: K and/or MAG REPLACEMENT MC SCH (07:24)
[2018-11-19 11:00] VITALS: BP 103/59
[2018-11-19 15:00] VITALS: BP 112/63
[2018-11-19 18:00] VITALS: BP 106/73
--- NOTE | 2018-11-19 18:10 | NUR ---
Problems reprioritized. Patient report given, questions answered & plan of care reviewed with CRISTY.
--- NOTE | 2018-11-19 18:15 | NUR ---
Patient in room MED 313. I have received report from SUKI Lynn and had the opportunity to ask questions and assume patient care.
[2018-11-19 22:00] VITALS: BP 136/67
--- NOTE | 2018-11-20 00:10 | NUR ---
Patient in room MED 313. I have received report from Jackeline and had the opportunity to ask questions and assume patient care.
[2018-11-20 02:00] VITALS: BP 133/66
[2018-11-20 05:59] LABS: MAGNESIUM 1.9 MG/DL (1.5-2.4); PHOSPHORUS 3.3 MG/DL (2.3-4.5); POTASSIUM 4.1 MMOL/L (3.5-5.1)
[2018-11-20 06:00] VITALS: BP 141/78
--- NOTE | 2018-11-20 06:09 | NUR ---
Problems reprioritized. Patient report given, questions answered & plan of care reviewed with SUKI Mackenzie.
--- NOTE | 2018-11-20 06:30 | NUR ---
Patient in room MED 313. I have received report from Jackeline COHN and had the opportunity to ask questions and assume patient care.
[2018-11-20] MEDS: potassium Cl 20 mEq SR tablet PO PRN (08:22)
[2018-11-20] MEDS: lactobacillus rhamnosus 10,000 MMU CELLS/CAPSULE PO SCH ×2 (08:22→19:43)
[2018-11-20] MEDS: amiodarone 200mg tablet PO SCH ×2 (08:22→19:43)
[2018-11-20] MEDS: apixaban 5mg tablet PO SCH ×2 (08:23→19:43)
[2018-11-20] MEDS: aspirin 81mg tablet.DR PO SCH (08:23)
[2018-11-20] MEDS: docusate sod 100mg capsule PO SCH ×2 (08:23→19:42)
[2018-11-20] MEDS: atorvastatin 10mg tablet PO SCH (08:24)
[2018-11-20] MEDS: metoprolol tartrate 12.5mg (1/2 tablet) PO SCH ×2 (08:27→19:44)
[2018-11-20] MEDS: K and/or MAG REPLACEMENT MC SCH (08:28)
[2018-11-20] MEDS: pantoprazole 40mg Tablet.DR PO SCH (08:28)
[2018-11-20 11:00] VITALS: BP 129/70
[2018-11-20 15:00] VITALS: BP 135/75
[2018-11-20 18:00] VITALS: BP 161/74
--- NOTE | 2018-11-20 18:11 | NUR ---
Problems reprioritized. Patient report given, questions answered & plan of care reviewed with Leoncio COHN.
--- NOTE | 2018-11-20 18:23 | NUR ---
Patient in room MED 313. I have received report from Jeannine COHN and had the opportunity to ask questions and assume patient care.
[2018-11-20 22:00] VITALS: BP 122/98
--- NOTE | 2018-11-21 02:05 | NUR ---
Patient's friend states that he sometimes has nosebleeds when taking eliquis. He did have a nosebleed just now, and is now resolved. will report to dayshift about eliquis.
[2018-11-21 06:00] VITALS: BP 129/97
[2018-11-21 06:07] LABS: MAGNESIUM 2.1 MG/DL (1.5-2.4); PHOSPHORUS 3.5 MG/DL (2.3-4.5); POTASSIUM 4.4 MMOL/L (3.5-5.1)
--- NOTE | 2018-11-21 06:22 | NUR ---
Problems reprioritized. Patient report given, questions answered & plan of care reviewed with Leah/Rafaela RNs.
--- NOTE | 2018-11-21 06:33 | NUR ---
Patient in room MED 313. I have received report from Leoncio COHN and had the opportunity to ask questions and assume patient care.
[2018-11-21] MEDS: K and/or MAG REPLACEMENT MC SCH (08:00)
[2018-11-21] MEDS: docusate sod 100mg capsule PO SCH ×2 (08:23→20:21)
[2018-11-21] MEDS: atorvastatin 10mg tablet PO SCH (08:23)
[2018-11-21] MEDS: amiodarone 200mg tablet PO SCH ×2 (08:23→20:22)
[2018-11-21] MEDS: lactobacillus rhamnosus 10,000 MMU CELLS/CAPSULE PO SCH ×2 (08:23→20:21)
[2018-11-21] MEDS: aspirin 81mg tablet.DR PO SCH (08:23)
[2018-11-21] MEDS: metoprolol tartrate 12.5mg (1/2 tablet) PO SCH ×2 (08:23→20:21)
[2018-11-21] MEDS: pantoprazole 40mg Tablet.DR PO SCH (08:23)
[2018-11-21] MEDS: apixaban 5mg tablet PO SCH ×2 (08:23→20:22)
[2018-11-21 11:00] VITALS: BP 130/73
--- NOTE | 2018-11-21 13:00 | NUR ---
CALLED CELINA STEVENSON ABOUT PATIENT'S TEARFULNESS INFORMED PA THAT PATIENT IS VERY TEARFUL, CRYING MULTIPLE TIMES A DAY AND HAS HAD TO BE RE-ORIENTED BECAUSE OF HIS VIVID FLASHBACKS AND PERIODS OF FORGETFULNESS. CELINA STEVENSON ASKS THAT WE ASK PATIENTS POA IF HE HAS HAD ANY MEDICATIONS IN THE PAST FOR THIS. WILL ASK HER WHEN SHE COMES TO VISIT TODAY.
[2018-11-21 15:00] VITALS: BP 105/55
[2018-11-21 18:00] VITALS: BP 134/75
--- NOTE | 2018-11-21 18:00 | NUR ---
Patient in room MED 313. I have received report from SUKI Lynn, and had the opportunity to ask questions and assume patient care.
[2018-11-21] MEDS: mirtazapine 15mg tablet PO SCH (20:22)
[2018-11-21 22:00] VITALS: BP 106/79
[2018-11-22 06:00] VITALS: BP 143/57
--- NOTE | 2018-11-22 06:00 | NUR ---
Problems reprioritized. Patient report given, questions answered & plan of care reviewed with SUKI Maldonado . Addendum: 11/22/18 at 1853 by Gina Sawant RN Problems reprioritized. Patient report given, questions answered & plan of care reviewed with SUKI Traore
--- NOTE | 2018-11-22 06:00 | NUR ---
Orientee documentation: I have reviewed and agree with all interventions, assessments performed and documented by Claudia COHN. Orientee Medication Administration: For this medication-pass time frame, all medication were reviewed, dispensed, administered and documented per hospital policy by SUKI Allen
--- NOTE | 2018-11-22 06:33 | NUR ---
Patient in room MED 313. I have received report from Gina COHN and had the opportunity to ask questions and assume patient care.
[2018-11-22] MEDS: K and/or MAG REPLACEMENT MC SCH (08:00)
[2018-11-22] MEDS: apixaban 5mg tablet PO SCH ×2 (09:02→20:20)
[2018-11-22] MEDS: amiodarone 200mg tablet PO SCH ×2 (09:02→20:20)
[2018-11-22] MEDS: docusate sod 100mg capsule PO SCH ×2 (09:04→20:20)
[2018-11-22] MEDS: metoprolol tartrate 12.5mg (1/2 tablet) PO SCH ×2 (09:04→20:21)
[2018-11-22] MEDS: atorvastatin 10mg tablet PO SCH (09:04)
[2018-11-22] MEDS: pantoprazole 40mg Tablet.DR PO SCH (09:04)
[2018-11-22] MEDS: aspirin 81mg tablet.DR PO SCH (09:04)
[2018-11-22] MEDS: lactobacillus rhamnosus 10,000 MMU CELLS/CAPSULE PO SCH ×2 (09:04→20:20)
[2018-11-22 09:06] VITALS: BP 116/62
[2018-11-22 11:00] VITALS: BP 131/73
--- NOTE | 2018-11-22 12:46 | NUR ---
neonatal social worker paged: patient's friend, Coty, called to informed us that she will be here after lunch sometime.
--- NOTE | 2018-11-22 14:31 | NUR ---
Reassessment: Patient has great appetite, eating well. Eating 75-100% of meals. No nutrition problem at this time. Regular BMs. Will continue to follow. Recommendations: 1) Continue carb controlled diet per MD 2) Wt per rx Addendum: 11/22/18 at [address] Amended: Links added.
[2018-11-22 15:00] VITALS: BP 132/77
[2018-11-22 18:00] VITALS: BP 115/82
--- NOTE | 2018-11-22 18:00 | NUR ---
Patient in room MED 313. I have received report from SUKI Traore and had the opportunity to ask questions and assume patient care.
--- NOTE | 2018-11-22 18:26 | NUR ---
Problems reprioritized. Patient report given, questions answered & plan of care reviewed with
[2018-11-22] MEDS: mirtazapine 15mg tablet PO SCH (20:20)
[2018-11-22 22:00] VITALS: BP 175/95
[2018-11-23 02:00] VITALS: BP 120/63
[2018-11-23 06:00] VITALS: BP 121/65
--- NOTE | 2018-11-23 06:00 | NUR ---
Problems reprioritized. Patient report given, questions answered & plan of care reviewed with SUKI Traore.
--- NOTE | 2018-11-23 06:52 | NUR ---
Patient in room MED 313. I have received report from Gina COHN and had the opportunity to ask questions and assume patient care.
[2018-11-23] MEDS: aspirin 81mg tablet.DR PO SCH (07:44)
[2018-11-23] MEDS: pantoprazole 40mg Tablet.DR PO SCH (07:44)
[2018-11-23] MEDS: amiodarone 200mg tablet PO SCH ×2 (07:44→20:36)
[2018-11-23] MEDS: apixaban 5mg tablet PO SCH ×2 (07:44→20:35)
[2018-11-23] MEDS: atorvastatin 10mg tablet PO SCH (07:44)
[2018-11-23] MEDS: lactobacillus rhamnosus 10,000 MMU CELLS/CAPSULE PO SCH ×2 (07:44→20:35)
[2018-11-23] MEDS: docusate sod 100mg capsule PO SCH ×2 (07:44→20:36)
[2018-11-23] MEDS: metoprolol tartrate 12.5mg (1/2 tablet) PO SCH ×2 (07:45→20:36)
[2018-11-23] MEDS: K and/or MAG REPLACEMENT MC SCH (08:00)
--- NOTE | 2018-11-23 09:15 | NUR ---
Discussed with Dr Bull that patient has not had a UA since arrival, and that his urine is cloudy. Patient is supposed to leave today, and doctor said he needs to follow up with his urologist outpatient. Also inquired as to whether we should draw labs today, doctor declined.
[2018-11-23] MEDS ORDERED: LISI-600 PO (09:27)
[2018-11-23] MEDS ORDERED: ATOR10TA PO (09:27)
[2018-11-23] MEDS ORDERED: METO25TA6 PO (09:27)
[2018-11-23] MEDS ORDERED: AMIO200T61 PO (09:27)
[2018-11-23] MEDS ORDERED: TERA5CAP4 PO (09:27)
[2018-11-23] MEDS ORDERED: ASPI-611 PO (09:27)
[2018-11-23] MEDS ORDERED: APIX5TAB3 PO (09:27)
[2018-11-23] MEDS ORDERED: MIRT15TA8 PO (09:27)
--- NOTE | 2018-11-23 09:30 | NUR ---
[facility] assisted living called to ask how they will get discharge medication filled. Edelmira, charge nurse, at [facility], informed that she was unaware of a new admit for this weekend and stated that she is not authorized to approve an admit on the weekend without talking to an participant administrator. I informed Edelmira, participant administrator - Willard - visited with the patient on Sunday and told us that patient could go to the facility today. i asked Edelmira to call Willard and call us back as soon as she hears anything.
--- NOTE | 2018-11-23 09:32 | NUR ---
313: TRAVIS Rahman d/arturo orders in. patient has new rx. how do we get them filled? one is a narcotic. also, we need transport set up for him for 1pm. ty Addendum: 11/23/18 at 0932 by Avril Gagnon RN case management sam
--- NOTE | 2018-11-23 09:54 | NUR ---
patient being discharged to [facility] has been informed and given all instructions for follow-up visits needed for this patient and will coordinate as appropriate. Addendum: 11/23/18 at 0955 by Avril Gagnon RN Amended: Links added.
--- NOTE | 2018-11-23 12:30 | NUR ---
CHARU, CASE MANAGEMENT, CALLED TO INFORM THAT [facility] IS NOT READY TO ACCEPT PATIENT TODAY. PATIENT WILL GO TOMORROW IN THE AM. WE WILL ARRANGE FOR TRANSPORT. DISCHARGE MEDICATIONS ORDER CALLED INTO [facility]. PATIENT ALSO HAS A PRESCRIPTION FOR NARCOTICS. [facility] INFORMED TO FAX TRIPLICATE TO THEIR FACILITY AND INFORM [facility] THAT [facility] WILL NANOELECTRONICS ENGINEER TRIPLICATE AT FACILITY WHEN PATIENT ARRIVES.
--- NOTE | 2018-11-23 13:00 | NUR ---
FRIEND SYEDA AT BEDSIDE WITH PATIENT. INFORMED HER THAT WE HAVE DISCHARGE INSTRUCTIONS THAT WE WOULD LIKE TO GO OVER WITH HER AND THE PATIENT AT THE SAME TIME PRIOR TO THE PATIENT BEING TRANSFERRED TO [facility]. SYEDA STATED "I DIDN'T SLEEP AT ALL LAST NIGHT, CAN I COME BACK LATER?" SYEDA TO COME BY DURING DINNER TO RECEIVE DISCHARGE INSTRUCTIONS. ALSO INFORMED HER AND PATIENT THAT STAFF AT [facility] WILL RECEIVE A COPY OF ALL DISCHARGE INSTRUCTIONS SO THEY CAN BE REFERRED BACK TO.
--- NOTE | 2018-11-23 13:29 | NUR ---
[facility] CALLED TO INFORM THAT THEY RECEIVED THE FAXED TRIPLICATE SCRIPT FOR THIS PATIENT.
--- NOTE | 2018-11-23 15:49 | NUR ---
Problems reprioritized. Patient report given, questions answered & plan of care reviewed with Sherlyn RN.
[2018-11-23 18:00] VITALS: BP 152/52
--- NOTE | 2018-11-23 18:25 | NUR ---
Problems reprioritized. Patient report given, questions answered & plan of care reviewed with Andreina COHN.
--- NOTE | 2018-11-23 18:26 | NUR ---
Patient in room MED 313. I have received report from SUKI Plata and had the opportunity to ask questions and assume patient care. Patient is sitting on side of bed, answers all questions appropriately but seem a little confused. He knows he has moments of confusion and is concerned and wants to talk about it and his girlfriend. I will continue to monitor.
[2018-11-23] MEDS ORDERED: levoFLOXACIN-Levaquin 500mg/D5 100 ML IV ONE (18:50)
--- NOTE | 2018-11-23 18:53 | NUR ---
Cld Zechariah Myers, as patient is having urinary symptoms (burning,frequency,cloudy/strong). Per Zechariah, get UA w/C&S, start Levaquin 500mg IV tonight and then Levaquin 250mg BID PO starting tomorrow.
[2018-11-23] MEDS: mirtazapine 15mg tablet PO SCH (20:36)
[2018-11-23 21:01] LABS: CLARITY,URINE CLOUDY (Clear); COLOR,URINE YELLOW (Yellow); GLUCOSE, URINE NEGATIVE (Neg); KETONES,URINE NEGATIVE (Neg); LEUKOCYTE ESTERASE ,URINE LARGE (Neg); OCCULT BLOOD,URINE LARGE (Neg); PH,URINE 7.5 (4.8-8.0); PROTEIN,URINE >=300 mg/dl (Neg)
[2018-11-23 21:06] LABS: NITRITES, URINE NEGATIVE (Neg)
[2018-11-23 21:08] LABS: UA COLLECTION TYPE CLN CATCH MIDSTREAM
[2018-11-23 21:09] LABS: BACTERIA,URINE FEW /HPF (Neg); MUCUS STRANDS FEW /LPF (Neg); RBC,URINE 50-100 /HPF (0-2); SQUAMOUS EPITHELIAL CELL,UR FEW /LPF (FEW); TRIPLE PHOSPHATE CRYST 2+ /HPF (NEGATIVE)
--- NOTE | 2018-11-24 01:57 | NUR ---
Patient was up out of bed confused trying to put on clothes over his catheter. His penis was irritated and bleeding for trauma of being pulled. I got patient reoriented and back to bed, his catheter was irrigated for clots and reinflated. A new leg bag was placed and lines changed. I will continue to monitor.
[2018-11-24 06:00] VITALS: BP 114/81
--- NOTE | 2018-11-24 06:20 | NUR ---
Problems reprioritized. Patient report given, questions answered & plan of care reviewed with Leah/LindaRN.
[2018-11-24] MEDS: K and/or MAG REPLACEMENT MC SCH (08:00)
[2018-11-24] MEDS: docusate sod 100mg capsule PO SCH (08:14)
[2018-11-24] MEDS: pantoprazole 40mg Tablet.DR PO SCH (08:14)
[2018-11-24] MEDS: apixaban 5mg tablet PO SCH (08:14)
[2018-11-24] MEDS: atorvastatin 10mg tablet PO SCH (08:14)
[2018-11-24 08:15] VITALS: BP_SYST 114
[2018-11-24] MEDS: lactobacillus rhamnosus 10,000 MMU CELLS/CAPSULE PO SCH (08:15)
[2018-11-24] MEDS: aspirin 81mg tablet.DR PO SCH (08:15)
[2018-11-24] MEDS: amiodarone 200mg tablet PO SCH (08:15)
[2018-11-24] MEDS: metoprolol tartrate 12.5mg (1/2 tablet) PO SCH (08:15)
[2018-11-24] MEDS ORDERED: levoFLOXACIN 500mg tablet PO SCH (11:00)
--- NOTE | 2018-11-24 11:00 | NUR ---
PATIENT ACCOMPANIED BY RN AND TRANSPORTED WITH RN [facility]IA [facility] TO [facility]. ALL BELONGINGS BROUGHT WITH PATIENT INCLUDING DISCHARGE PACKET WITH MEDICATION INFORMATION. PHYSICAL PRESCRIPTION FOR NORCO INCLUDED WITH DISCHARGE PACKET AND INTAKE PERSONNEL MADE AWARE OF RX. PATIENT CALM, COMFORTABLE, AND COOPERATIVE. IV WAS REMOVED PRIOR TO DISCHARGE CATHETER INTACT MINIMAL BLEEDING CLEAN GAUZE APPLIED AND SECURED WITH TAPE.
== END 2018-11-24 11:00 | DRG 228 ==
LOC: SSTAY O 10:13 → MED 3N 17:23 → SUR 3N 11-08 13:39 → MED 3N 11-12 10:41 → ICU 2S 11-14 09:47 → MED 3N 11-17 15:53
PROVIDERS: ADMIT Family Medicine; ATTEND Internal Medicine Cardiovascular Disease
PROC: 4A023N7 Measurement of Cardiac Sampling and Pressure, Left Heart, Percutaneous Approach (ICD-10-PCS; 2018-11-06)
PROC: B2151ZZ Fluoroscopy of Left Heart using Low Osmolar Contrast (ICD-10-PCS; 2018-11-06)
PROC: B2111ZZ Fluoroscopy of Multiple Coronary Arteries using Low Osmolar Contrast (ICD-10-PCS; 2018-11-06)
PROC: B3111ZZ Fluoroscopy of Right Brachiocephalic-Subclavian Artery using Low Osmolar Contrast (ICD-10-PCS; 2018-11-06)
PROC: B3121ZZ Fluoroscopy of Left Subclavian Artery using Low Osmolar Contrast (ICD-10-PCS; 2018-11-06)
PROC: B41F1ZZ Fluoroscopy of Right Lower Extremity Arteries using Low Osmolar Contrast (ICD-10-PCS; 2018-11-06)
PROC: B41C1ZZ Fluoroscopy of Pelvic Arteries using Low Osmolar Contrast (ICD-10-PCS; 2018-11-06)
PROC: 02C Heart and Great Vessels, Extirpation (ICD-10-PCS; 2018-11-14)
PROC: 021109W Bypass Coronary Artery, Two Arteries from Aorta with Autologous Venous Tissue, Open Approach (ICD-10-PCS; 2018-11-14)
PROC: 06BP0ZZ Excision of Right Saphenous Vein, Open Approach (ICD-10-PCS; 2018-11-14)
PROC: B24BZZ4 Ultrasonography of Heart with Aorta, Transesophageal (ICD-10-PCS; 2018-11-14)
PROC: 5A1221Z Performance of Cardiac Output, Continuous (ICD-10-PCS; 2018-11-14)
PROC: 02L70CK Occlusion of Left Atrial Appendage with Extraluminal Device, Open Approach (ICD-10-PCS; 2018-11-14)
PROC: 02HV33Z Insertion of Infusion Device into Superior Vena Cava, Percutaneous Approach (ICD-10-PCS; 2018-11-14)
PROC: B548ZZA Ultrasonography of Superior Vena Cava, Guidance (ICD-10-PCS; 2018-11-14)
PROC: 4A133B3 Monitoring of Arterial Pressure, Pulmonary, Percutaneous Approach (ICD-10-PCS; 2018-11-14)
PROC: 02HP32Z Insertion of Monitoring Device into Pulmonary Trunk, Percutaneous Approach (ICD-10-PCS; 2018-11-14)
PROC: 02100Z9 Bypass Coronary Artery, One Artery from Left Internal Mammary, Open Approach (ICD-10-PCS; principal; 2018-11-14 06:52)
DX: I25.10 Atherosclerotic heart disease of native coronary artery without angina pectoris (principal); G93.41 Metabolic encephalopathy; N39.0 Urinary tract infection, site not specified; I47.2 Ventricular tachycardia; I50.22 Chronic systolic (congestive) heart failure; N13.8 Other obstructive and reflux uropathy; C61 Malignant neoplasm of prostate; E78.5 Hyperlipidemia, unspecified; F43.10 Post-traumatic stress disorder, unspecified; I51.3 Intracardiac thrombosis, not elsewhere classified; I11.0 Hypertensive heart disease with heart failure; I25.5 Ischemic cardiomyopathy; I48.2 Chronic atrial fibrillation; J44.9 Chronic obstructive pulmonary disease, unspecified; N40.1 Benign prostatic hyperplasia with lower urinary tract symptoms; E11.9 Type 2 diabetes mellitus without complications; N32.0 Bladder-neck obstruction; Z59.0 Homelessness; Z87.820 Personal history of traumatic brain injury; I25.2 Old myocardial infarction; Z95.5 Presence of coronary angioplasty implant and graft; Z87.440 Personal history of urinary (tract) infections; Z89.022 Acquired absence of left finger(s)
CPT/HCPCS: 36415; 36600; 71045; 71046; 80048; 80053; 80061; 80074; 81001; 82330; 82435; 82607; 82803; 82947; 82948; 83036; 83605; 83735; 83880; 84100; 84132; 84153; 84154; 84295; 84443; 85018; 85025; 85027; 85347; 85384; 85610; 85730; 86703; 86885; 86900; 86901; 86920; 87040; 87077; 87081; 87088; 87186; 88304; 88305; 93005; 93312; 93325; 93458; 93880; 93922; 93925; 93970; 94002; 94010; 94667; 94668; 94760; 97110; 97116; 97161; 97162; 97530; 99152; 99153; 99281; 99283; A4618; A4620; A6196; A6258; A6449; A7000; A7048; C1751; C1760; C1769; G0378; J0171; J0282; J0290; J0690; J1644; J1815; J1940; J1956; J2001; J2060; J2250; J2270; J2370; J2704; J2720; J2765; J2795; J2930; J3010; J3475; J3480; J3490; J7030; J7040; J7050; J7060; J7120; P9045; P9047; Q0163; Q9967

== ENCOUNTER 2018-12-21 03:49 | Emergency (ER) | payer MEDICARE, OTHER ==
[~2018-12-21] VITALS: Ht 175.3 cm; Wt 88.6 kg
[~2018-12-21 03:49] MED LIST changes: +AMIO200T61 PO; +ASPI-611 PO; +ATOR10TA PO; -DILT120C51 PO; +IBUP1TAB11 PO; +LISI-600 PO; +METO25TA6 PO; +MIRT15TA8 PO
[2018-12-21 04:33] VITALS: BP 172/101
== END 2018-12-21 04:35 | disposition home or self-care (01) ==
LOC: ER 03:50
DX: T83.038A Leakage of other urinary catheter, initial encounter (principal); I48.91 Unspecified atrial fibrillation; I25.10 Atherosclerotic heart disease of native coronary artery without angina pectoris; I25.2 Old myocardial infarction; Z98.61 Coronary angioplasty status; Z79.82 Long term (current) use of aspirin; Z79.899 Other long term (current) drug therapy; Y84.6 Urinary catheterization as the cause of abnormal reaction of the patient, or of later complication, without mention of misadventure at the time of the procedure; Y92.89 Other specified places as the place of occurrence of the external cause
CPT/HCPCS: 51702; 99284

== ENCOUNTER 2018-12-21 21:18 | Emergency (ER) | payer MEDICARE, OTHER ==
[~2018-12-21] VITALS: Ht 175.3 cm; Wt 88.6 kg
--- NOTE | 2018-12-21 21:46 | NUR ---
LEAKING AROUND TUBE. HE HAS HAD CATH FOR SO LONG, POTENTIALLY NEEDS LARGER CATH WITH LARGER BULB.
[2018-12-21 22:37] VITALS: BP 143/87
[2018-12-21] MEDS ORDERED: LIDOcaine 2% 10ml TOPICAL JELLY (Urojet) MM STA (23:41)
--- NOTE | 2018-12-21 23:41 | NUR ---
SPOKE TO DR BUTLER, AND HE AGREES. CALLED FOR URO CART FOR MYSELF
[2018-12-23] MEDS ORDERED: OXYB10TA4 PO (11:46)
== END 2018-12-22 01:39 | disposition home or self-care (01) ==
LOC: ER 21:21
DX: T83.098A Other mechanical complication of other urinary catheter, initial encounter (principal); I48.91 Unspecified atrial fibrillation; I25.10 Atherosclerotic heart disease of native coronary artery without angina pectoris; I25.2 Old myocardial infarction; Z95.5 Presence of coronary angioplasty implant and graft; Z79.82 Long term (current) use of aspirin; Z79.899 Other long term (current) drug therapy; Y92.89 Other specified places as the place of occurrence of the external cause
CPT/HCPCS: 51702; 99284

== ENCOUNTER 2018-12-23 10:09 | Emergency (ER) | payer MEDICARE, OTHER ==
[~2018-12-23] VITALS: Ht 175.3 cm; Wt 84.4 kg
--- NOTE | 2018-12-23 11:11 | NUR ---
blood found in cath that pt had from home. cath irrigated with no results. home gonzalez ballon was inflated with 30cc ns. deflated the ballon and gonzalez began to irrigate. Rufino COHN replaced gonzalez cath. at this time gonzalez is draining clear urine. aware
[2018-12-23] MEDS ORDERED: OXYB10TA4 PO (11:46)
[2018-12-23 12:11] VITALS: BP 136/82
[2018-12-23 12:13] LABS: CLARITY,URINE CLOUDY (Clear); COLOR,URINE YELLOW (Yellow); GLUCOSE, URINE NEGATIVE (Neg); KETONES,URINE NEGATIVE (Neg); LEUKOCYTE ESTERASE ,URINE TRACE (Neg); NITRITES, URINE NEGATIVE (Neg); OCCULT BLOOD,URINE LARGE (Neg); PROTEIN,URINE 100 mg/dl (Neg); UROBILINOGEN,URINE 0.2 E.U/dL (0.2-1.0)
[2018-12-23 12:15] LABS: UA COLLECTION TYPE FOLEY CATH
[2018-12-23 12:27] LABS: RBC,URINE TNTC /HPF (0-2); WBC,URINE 0-4 /HPF (0-4)
[2018-12-23 12:28] LABS: BACTERIA,URINE NONE SEEN /HPF (Neg); MUCUS STRANDS FEW /LPF (Neg); SQUAMOUS EPITHELIAL CELL,UR FEW /LPF (FEW); TRANSITIONAL EPI CELLS,URINE FEW /HPF
== END 2018-12-23 12:13 | disposition home or self-care (01) ==
LOC: ER 10:10
DX: T83.038A Leakage of other urinary catheter, initial encounter (principal); I48.91 Unspecified atrial fibrillation; I25.10 Atherosclerotic heart disease of native coronary artery without angina pectoris; I25.2 Old myocardial infarction; Z98.61 Coronary angioplasty status; Z79.82 Long term (current) use of aspirin; Z79.899 Other long term (current) drug therapy; Y84.6 Urinary catheterization as the cause of abnormal reaction of the patient, or of later complication, without mention of misadventure at the time of the procedure; Y92.89 Other specified places as the place of occurrence of the external cause
CPT/HCPCS: 51702; 76705; 81001; 87088; 99284

== ENCOUNTER 2019-01-10 10:20 | Inpatient (IN) | payer MEDICARE, OTHER ==
[~2019-01-10] VITALS: Ht 175.3 cm; Wt 80.6 kg
[~2019-01-10 10:20] MED LIST changes: +OXYB10TA4 PO
[2019-01-10] MEDS ORDERED: normal saline 1000ML IV soln IVB ONE (11:00)
[2019-01-10 11:43] LABS: BASOPHILS % (AUTO) 0.4 % (0-1); EOSINOPHILS # (AUTO) 0.2 X10'3 (0-0.9); EOSINOPHILS % (AUTO) 2.3 % (0-6); HEMATOCRIT 37.2 % (42.0-52.0); HEMOGLOBIN 12.2 g/dl (14.0-17.9); LYMPHOCYTES # (AUTO) 1.5 X10'3 (1.1-4.8); LYMPHOCYTES % (AUTO) 17.5 % (21-51); MEAN CORPUSCULAR HEMOGLOBIN 29.3 PG (27.0-31.0); MEAN CORPUSCULAR HGB CONC 32.8 g/dL (33.0-36.5); MEAN CORPUSCULAR VOLUME 89.4 FL (78-98); MEAN PLATELET VOLUME 7.1 FL (7.4-10.4); MONOCYTES # (AUTO) 0.9 X10'3 (0-0.9); MONOCYTES % (AUTO) 10.6 % (2-12); NEUTROPHILS # (AUTO) 6.1 X10'3 (1.8-7.7); NEUTROPHILS % (AUTO) 69.2 % (42-75); PLATELET COUNT 222 X10'3 (140-440); RED BLOOD COUNT 4.17 X10'6 (4.70-6.10); RED CELL DISTRIBUTION WIDTH 16.2 % (11.5-14.5); WHITE BLOOD COUNT 8.7 X10'3 (4.5-11.0)
[2019-01-10 12:09] LABS: ALANINE AMINOTRANSFERASE 15 U/L (12-78); ALBUMIN 3.4 G/DL (3.4-5.0); ALKALINE PHOSPHATASE 90 IU/L (46-116); ANION GAP 8 (8-16); ASPARTATE AMINO TRANSFERASE 11 U/L (10-37); BILIRUBIN,TOTAL 0.5 MG/DL (0.1-1.0); BLOOD UREA NITROGEN 25 MG/DL (7-18); BUN/CREATININE RATIO 20.7 (5.4-32.0); CALCIUM 8.1 MG/DL (8.5-10.1); CHLORIDE 110 MMOL/L (99-107); CREATININE 1.21 MG/DL (0.60-1.10); GLUCOSE 115 MG/DL (70-104); POTASSIUM 4.1 MMOL/L (3.5-5.1); SODIUM 145 MMOL/L (135-145); TOTAL CARBON DIOXIDE 27.3 MMOL/L (24-32); TOTAL PROTEIN 6.9 G/DL (6.4-8.2); eGFR 59 ML/MIN
[2019-01-10 12:10] LABS: TROPONIN I < 0.04 NG/ML (0.0-0.05)
[2019-01-10 12:44] LABS: CLARITY,URINE SLIGHTLY CLOUDY (Clear); COLOR,URINE YELLOW (Yellow); GLUCOSE, URINE NEGATIVE (Neg); KETONES,URINE NEGATIVE (Neg); LEUKOCYTE ESTERASE ,URINE SMALL (Neg); UROBILINOGEN,URINE 0.2 E.U/dL (0.2-1.0)
[2019-01-10 12:48] LABS: NITRITES, URINE NEGATIVE (Neg); OCCULT BLOOD,URINE LARGE (Neg); PROTEIN,URINE 100 mg/dl (Neg)
[2019-01-10 12:51] LABS: UA COLLECTION TYPE FOLEY CATH
[2019-01-10 12:54] LABS: SQUAMOUS EPITHELIAL CELL,UR FEW /LPF (FEW)
[2019-01-10 12:55] LABS: BACTERIA,URINE 1+ /HPF (Neg); RBC,URINE TNTC /HPF (0-2)
[2019-01-10] MEDS ORDERED: normal saline 1000ml 1,000 ML IV SCH (14:42)
[2019-01-10] MEDS ORDERED: potassium Cl 20 mEq SR tablet PO PRN ×2 (14:45)
[2019-01-10] MEDS ORDERED: magnesium 4gm in 100ml NS 100 ML IV PRN (14:45)
[2019-01-10] MEDS ORDERED: magnesium Cl slow-release 64mg tablet PO PRN (14:45)
[2019-01-10] MEDS ORDERED: mag hydrox/Alum hydrox/simeth 30ml oral suspension PO PRN (14:45)
[2019-01-10] MEDS ORDERED: potassium CL 10mEq/100ml bag 100 ML IV PRN ×2 (14:45)
[2019-01-10] MEDS ORDERED: acetaminophen 325mg tablet PO PRN (14:45)
[2019-01-10] MEDS ORDERED: magnesium 2GM in 50ml NS 50 ML IV PRN (14:45)
[2019-01-10] MEDS ORDERED: ATOR10TA70 PO (14:56)
[2019-01-10] MEDS ORDERED: DABI150C PO (14:56)
[2019-01-10] MEDS ORDERED: LISI-600 PO (14:57)
[2019-01-10] MEDS ORDERED: ASPI-611 PO (15:00)
[2019-01-10] MEDS ORDERED: METO25TA6 PO (15:00)
[2019-01-10] MEDS ORDERED: AMIO200T61 PO (15:01)
[2019-01-10] MEDS ORDERED: MIRT15TA PO (15:02)
[2019-01-10] MEDS ORDERED: TERA10CA4 PO (15:03)
[2019-01-10] MEDS ORDERED: furosemide 40mg/4ml inj IV ONE (17:20)
--- NOTE | 2019-01-10 18:30 | NUR ---
PT. WAS GIVEN A HOSPITAL PHONE AND HAS BEEN CALLING PEOPLE AND TELLING THEM THAT HE IS HERE. PEOPLE ARE CALLING BACK AND ASKING FOR HIM BUT HE IS MARKED A CONFIDENTIAL PT. AND THEY CAN NOT GIVE OUT INFORMATION. I ASKED HIM IF HE WANTED TO BE LISTED CONFIDENTIAL BECAUSE PEOPLE WERE CALLING IN AND WE COULD NOT TELL THEM THAT HE WAS HERE. HE STATED HE DID NOT KNOW WHY HE WAS CONFIDENTIAL AND WANTED ME TO PUT ALL CALLS THROUGH TO HIM. WE ARE REMOVING THE CONFIDENTIAL STATUS.
--- NOTE | 2019-01-10 18:36 | NUR ---
THE NOTE ABOVE WAS NOT PLACED BY OBINNA EATON. IT WAS WRITTEN BY JOSE SALES.
--- NOTE | 2019-01-10 18:50 | NUR ---
Patient in room MED 310. I have received report from HUMIDIFIER MAINTENANCE WORKER and had the opportunity to ask questions and assume patient care.pt arrived to unit a/o x3 forgetful at times. assume care.
[2019-01-10 19:50] VITALS: BP 142/77
--- NOTE | 2019-01-10 20:43 | NUR ---
Dr. Orourke notified to clarify maintaince fluid with BNP 1070 and lasix BID. new orders noted. D/C maintaince fluid.
[2019-01-10] MEDS: metoprolol tartrate 12.5mg (1/2 tablet) PO SCH (21:25)
[2019-01-10] MEDS: terazosin 5mg capsule PO SCH (21:25)
[2019-01-10] MEDS: mirtazapine 15mg tablet PO SCH (21:26)
[2019-01-11] VITALS (7 sets, daily range): BP systolic 109–145; BP diastolic 67–91
[2019-01-11] MEDS: dabigatran 150mg capsule PO SCH ×3 (00:14→22:36)
[2019-01-11 05:41] LABS: BASOPHILS % (AUTO) 0.3 % (0-1); EOSINOPHILS # (AUTO) 0.3 X10'3 (0-0.9); EOSINOPHILS % (AUTO) 3.7 % (0-6); HEMATOCRIT 42.2 % (42.0-52.0); HEMOGLOBIN 13.8 g/dl (14.0-17.9); LYMPHOCYTES # (AUTO) 1.6 X10'3 (1.1-4.8); LYMPHOCYTES % (AUTO) 18.5 % (21-51); MEAN CORPUSCULAR HEMOGLOBIN 29.2 PG (27.0-31.0); MEAN CORPUSCULAR HGB CONC 32.7 g/dL (33.0-36.5); MEAN CORPUSCULAR VOLUME 89.2 FL (78-98); MEAN PLATELET VOLUME 7.5 FL (7.4-10.4); MONOCYTES # (AUTO) 1.2 X10'3 (0-0.9); MONOCYTES % (AUTO) 13.3 % (2-12); NEUTROPHILS # (AUTO) 5.7 X10'3 (1.8-7.7); NEUTROPHILS % (AUTO) 64.2 % (42-75); PLATELET COUNT 251 X10'3 (140-440); RED BLOOD COUNT 4.73 X10'6 (4.70-6.10); RED CELL DISTRIBUTION WIDTH 16.1 % (11.5-14.5); WHITE BLOOD COUNT 8.9 X10'3 (4.5-11.0)
[2019-01-11 06:18] LABS: ALANINE AMINOTRANSFERASE 17 U/L (12-78); ALBUMIN 3.6 G/DL (3.4-5.0); ALBUMIN/GLOBULIN RATIO 0.9 (1.1-1.5); ALKALINE PHOSPHATASE 100 IU/L (46-116); ANION GAP 11 (8-16); ASPARTATE AMINO TRANSFERASE 17 U/L (10-37); BILIRUBIN,TOTAL 0.4 MG/DL (0.1-1.0); BLOOD UREA NITROGEN 23 MG/DL (7-18); BUN/CREATININE RATIO 18.9 (5.4-32.0); CALCIUM 8.6 MG/DL (8.5-10.1); CHLORIDE 108 MMOL/L (99-107); CREATININE 1.22 MG/DL (0.60-1.10); GLUCOSE 95 MG/DL (70-104); SODIUM 147 MMOL/L (135-145); TOTAL CARBON DIOXIDE 28.5 MMOL/L (24-32); TOTAL PROTEIN 7.5 G/DL (6.4-8.2); eGFR 58 ML/MIN
[2019-01-11 06:21] LABS: POTASSIUM 3.9 MMOL/L (3.5-5.1)
[2019-01-11] MEDS ORDERED: enoxaparin 40mg/0.4ml syringe SQ SCH (08:00)
[2019-01-11] MEDS: K and/or MAG REPLACEMENT MC SCH (08:00)
[2019-01-11] MEDS: metoprolol tartrate 12.5mg (1/2 tablet) PO SCH ×2 (09:04→22:36)
[2019-01-11] MEDS: lisinopril 20mg tablet PO SCH (09:05)
[2019-01-11] MEDS: atorvastatin 10mg tablet PO SCH (09:05)
[2019-01-11] MEDS: aspirin 81mg tablet.DR PO SCH (09:05)
[2019-01-11] MEDS: amiodarone 200mg tablet PO SCH (09:05)
--- NOTE | 2019-01-11 18:00 | NUR ---
Patient in room MED 310. I have received report from JOHNNY COHN and had the opportunity to ask questions and assume patient care.
--- NOTE | 2019-01-11 18:00 | NUR ---
Patient in room MED 310. I have received report from Rosa M COHN and had the opportunity to ask questions and assume patient care.
--- NOTE | 2019-01-11 18:00 | NUR ---
Problems reprioritized. Patient report given, questions answered & plan of care reviewed with Effie COHN.
--- NOTE | 2019-01-11 18:29 | NUR ---
PAGER ID: [phone] MESSAGE: 310: TRAVIS YOON +, CULT INDICATED. DO YOU WANT ABX? NURSE BINTA [id number]
[2019-01-11] MEDS: mirtazapine 15mg tablet PO SCH (22:35)
[2019-01-11] MEDS: terazosin 5mg capsule PO SCH (22:35)
[2019-01-11] MEDS: CefTRIAXone/D5W-Rocephin 1gm 50 ML IV SCH (22:37)
[2019-01-12 03:00] VITALS: BP 131/81
--- NOTE | 2019-01-12 06:10 | NUR ---
Patient in room MED 310. I have received report from Effie COHN and had the opportunity to ask questions and assume patient care.
[2019-01-12 06:31] LABS: BASOPHILS % (AUTO) 0.2 % (0-1); EOSINOPHILS # (AUTO) 0.3 X10'3 (0-0.9); EOSINOPHILS % (AUTO) 3.2 % (0-6); HEMATOCRIT 40.5 % (42.0-52.0); HEMOGLOBIN 13.2 g/dl (14.0-17.9); LYMPHOCYTES # (AUTO) 1.4 X10'3 (1.1-4.8); LYMPHOCYTES % (AUTO) 14.8 % (21-51); MEAN CORPUSCULAR HGB CONC 32.7 g/dL (33.0-36.5); MEAN CORPUSCULAR VOLUME 88.9 FL (78-98); MEAN PLATELET VOLUME 7.4 FL (7.4-10.4); MONOCYTES # (AUTO) 1.4 X10'3 (0-0.9); NEUTROPHILS # (AUTO) 6.6 X10'3 (1.8-7.7); NEUTROPHILS % (AUTO) 67.8 % (42-75); PLATELET COUNT 237 X10'3 (140-440); RED BLOOD COUNT 4.55 X10'6 (4.70-6.10); RED CELL DISTRIBUTION WIDTH 16.2 % (11.5-14.5); WHITE BLOOD COUNT 9.7 X10'3 (4.5-11.0)
[2019-01-12 06:50] LABS: ALANINE AMINOTRANSFERASE 16 U/L (12-78); ALBUMIN 3.2 G/DL (3.4-5.0); ALBUMIN/GLOBULIN RATIO 0.8 (1.1-1.5); ALKALINE PHOSPHATASE 92 IU/L (46-116); ANION GAP 6 (8-16); ASPARTATE AMINO TRANSFERASE 12 U/L (10-37); BILIRUBIN,TOTAL 0.7 MG/DL (0.1-1.0); BLOOD UREA NITROGEN 25 MG/DL (7-18); BUN/CREATININE RATIO 18.9 (5.4-32.0); CALCIUM 8.2 MG/DL (8.5-10.1); CHLORIDE 111 MMOL/L (99-107); CREATININE 1.32 MG/DL (0.60-1.10); GLUCOSE 112 MG/DL (70-104); MAGNESIUM 2.3 MG/DL (1.5-2.4); POTASSIUM 3.8 MMOL/L (3.5-5.1); SODIUM 148 MMOL/L (135-145); TOTAL CARBON DIOXIDE 30.7 MMOL/L (24-32); TOTAL PROTEIN 7.1 G/DL (6.4-8.2); eGFR 53 ML/MIN
[2019-01-12 06:55] VITALS: BP 116/70
[2019-01-12] MEDS: lisinopril 20mg tablet PO SCH (08:00)
[2019-01-12] MEDS: K and/or MAG REPLACEMENT MC SCH (08:00)
[2019-01-12] MEDS: dabigatran 150mg capsule PO SCH ×2 (08:52→20:42)
[2019-01-12] MEDS: CefTRIAXone/D5W-Rocephin 1gm 50 ML IV SCH (08:52)
[2019-01-12] MEDS: amiodarone 200mg tablet PO SCH (08:52)
[2019-01-12] MEDS: atorvastatin 10mg tablet PO SCH (08:53)
[2019-01-12] MEDS: metoprolol tartrate 12.5mg (1/2 tablet) PO SCH ×2 (08:54→20:42)
[2019-01-12] MEDS: aspirin 81mg tablet.DR PO SCH (08:54)
[2019-01-12] MEDS: sodium chloride 0.45% 1,000 ML IV SCH ×2 (09:03→17:25)
--- NOTE | 2019-01-12 10:57 | NUR ---
Made hospitalist aware of Lisinopril that was held this am r/t a 103 sbp, MD serrano'd this hold.
[2019-01-12 11:00] VITALS: BP 113/73
--- NOTE | 2019-01-12 11:17 | NUR ---
Patient says he wants to leave AMA Paged Dr. Chaudhry "Re: Jose A Garland in 310. He is wanting to leave AMA. can you call me or come talk to the patient? thank you, Leah MCINTYRE [phone]"
[2019-01-12 15:30] VITALS: BP 91/59
--- NOTE | 2019-01-12 16:10 | NUR ---
Patient in room MED 310. I have received report from Effie COHN and had the opportunity to ask questions and assume patient care. Addendum: 01/12/19 at 1629 by Rafaela Peterson RN Received report at 0658 not 3339
[2019-01-12 18:00] VITALS: BP 95/65
--- NOTE | 2019-01-12 18:27 | NUR ---
Problems reprioritized. Patient report given, questions answered & plan of care reviewed with Tiffany COHN.
[2019-01-12] MEDS: mirtazapine 15mg tablet PO SCH (20:42)
[2019-01-12] MEDS: terazosin 5mg capsule PO SCH (20:44)
[2019-01-12 22:00] VITALS: BP 118/57
[2019-01-13 02:00] VITALS: BP 95/78
[2019-01-13 06:00] VITALS: BP 103/66
--- NOTE | 2019-01-13 06:29 | NUR ---
gave report to Jennie. All questions were answered.
--- NOTE | 2019-01-13 06:33 | NUR ---
Patient in room MED 310. I have received report from SUKI Allen and had the opportunity to ask questions and assume patient care.
[2019-01-13 06:50] LABS: BASOPHILS % (AUTO) 0.3 % (0-1); EOSINOPHILS # (AUTO) 0.3 X10'3 (0-0.9); EOSINOPHILS % (AUTO) 3.2 % (0-6); HEMATOCRIT 38.9 % (42.0-52.0); HEMOGLOBIN 12.7 g/dl (14.0-17.9); LYMPHOCYTES # (AUTO) 1.2 X10'3 (1.1-4.8); LYMPHOCYTES % (AUTO) 12.4 % (21-51); MEAN CORPUSCULAR HGB CONC 32.6 g/dL (33.0-36.5); MEAN PLATELET VOLUME 7.5 FL (7.4-10.4); MONOCYTES # (AUTO) 1.1 X10'3 (0-0.9); MONOCYTES % (AUTO) 10.7 % (2-12); NEUTROPHILS # (AUTO) 7.2 X10'3 (1.8-7.7); NEUTROPHILS % (AUTO) 73.4 % (42-75); PLATELET COUNT 243 X10'3 (140-440); RED BLOOD COUNT 4.37 X10'6 (4.70-6.10); RED CELL DISTRIBUTION WIDTH 16.2 % (11.5-14.5); WHITE BLOOD COUNT 9.9 X10'3 (4.5-11.0)
[2019-01-13 07:13] LABS: ALANINE AMINOTRANSFERASE 15 U/L (12-78); ALBUMIN/GLOBULIN RATIO 0.8 (1.1-1.5); ALKALINE PHOSPHATASE 86 IU/L (46-116); ANION GAP 11 (8-16); ASPARTATE AMINO TRANSFERASE 10 U/L (10-37); BILIRUBIN,TOTAL 0.5 MG/DL (0.1-1.0); BLOOD UREA NITROGEN 29 MG/DL (7-18); CALCIUM 8.5 MG/DL (8.5-10.1); CHLORIDE 111 MMOL/L (99-107); CREATININE 1.38 MG/DL (0.60-1.10); GLUCOSE 128 MG/DL (70-104); MAGNESIUM 2.3 MG/DL (1.5-2.4); POTASSIUM 3.8 MMOL/L (3.5-5.1); SODIUM 148 MMOL/L (135-145); TOTAL CARBON DIOXIDE 25.7 MMOL/L (24-32); TOTAL PROTEIN 6.9 G/DL (6.4-8.2); eGFR 51 ML/MIN
[2019-01-13] MEDS: lisinopril 20mg tablet PO SCH ×2 (08:00→20:29)
[2019-01-13] MEDS: K and/or MAG REPLACEMENT MC SCH (08:00)
[2019-01-13] MEDS: amiodarone 200mg tablet PO SCH (08:12)
[2019-01-13] MEDS: dabigatran 150mg capsule PO SCH ×2 (08:13→20:28)
[2019-01-13] MEDS: aspirin 81mg tablet.DR PO SCH (08:13)
[2019-01-13] MEDS: atorvastatin 10mg tablet PO SCH (08:14)
[2019-01-13] MEDS: ondansetron/PF 4mg/2ml inj IV PRN ×3 (10:20→11:37)
[2019-01-13] MEDS: metoprolol tartrate 12.5mg (1/2 tablet) PO SCH ×2 (10:26→20:28)
[2019-01-13] MEDS ORDERED: ondansetron 4mg rapidly disintigrating tab PO PRN (10:50)
[2019-01-13 11:00] VITALS: BP 85/57
--- NOTE | 2019-01-13 11:45 | NUR ---
CALLED PLACED TO DR. SALINAS'S ANSWERING SERVICE. SILICA FILTER OPERATOR STATED WAS IN SURGERY AND WOULD GIVE HIM THE MESSAGE WHEN HE CAME OUT
--- NOTE | 2019-01-13 13:30 | NUR ---
received phone call from Dr. Hill informed him of catheter leaking,bloody urine,occasional clots,md requested f/c flushed ,and to call him back if catheter did not flush easily
[2019-01-13] MEDS: sodium chloride 0.45% 1,000 ML IV SCH ×2 (14:00→20:32)
[2019-01-13 15:00] VITALS: BP 90/62
[2019-01-13 18:50] VITALS: BP 118/63
--- NOTE | 2019-01-13 18:59 | NUR ---
Patient in room MED 310. I have received report from Beverly Lopez and had the opportunity to ask questions and assume patient care.
[2019-01-13] MEDS: terazosin 5mg capsule PO SCH (20:25)
[2019-01-13] MEDS: mirtazapine 15mg tablet PO SCH (20:25)
--- NOTE | 2019-01-13 21:10 | NUR ---
Received patient report from SUKI Puente. I transported patient via wheelchair to our unit with all his belongings, ([phone]). Patient was not in any apparent distress.
--- NOTE | 2019-01-13 21:16 | NUR ---
reported to Byron COHN via phone, awaiting transfer to room 347 A.
[2019-01-13 21:30] VITALS: BP 116/68
--- NOTE | 2019-01-13 21:30 | NUR ---
I agree with previous nurses assessment, except for the following, Patient has not had a bowel movement since 12/10 so I am unaware if his bm's are normal. Patient is alert and oriented to person and place. Addendum: 01/14/19 at 1850 by Thomas Cheema RN The patients last BM was 01/09/19 not 12/10/18
[2019-01-14] VITALS: BP 125/60
[2019-01-14] MEDS: sodium chloride 0.45% 1,000 ML IV SCH ×2 (04:46→17:53)
[2019-01-14 04:59] LABS: BASOPHILS % (AUTO) 0.2 % (0-1); EOSINOPHILS # (AUTO) 0.3 X10'3 (0-0.9); HEMATOCRIT 37.2 % (42.0-52.0); HEMOGLOBIN 12.3 g/dl (14.0-17.9); LYMPHOCYTES # (AUTO) 1.4 X10'3 (1.1-4.8); LYMPHOCYTES % (AUTO) 13.2 % (21-51); MEAN CORPUSCULAR VOLUME 87.8 FL (78-98); MEAN PLATELET VOLUME 7.5 FL (7.4-10.4); MONOCYTES # (AUTO) 1.2 X10'3 (0-0.9); MONOCYTES % (AUTO) 11.7 % (2-12); NEUTROPHILS # (AUTO) 7.6 X10'3 (1.8-7.7); NEUTROPHILS % (AUTO) 71.9 % (42-75); PLATELET COUNT 218 X10'3 (140-440); RED BLOOD COUNT 4.24 X10'6 (4.70-6.10); RED CELL DISTRIBUTION WIDTH 15.8 % (11.5-14.5); WHITE BLOOD COUNT 10.5 X10'3 (4.5-11.0)
[2019-01-14 05:27] LABS: ALANINE AMINOTRANSFERASE 13 U/L (12-78); ALBUMIN 2.8 G/DL (3.4-5.0); ALBUMIN/GLOBULIN RATIO 0.7 (1.1-1.5); ALKALINE PHOSPHATASE 82 IU/L (46-116); ANION GAP 9 (8-16); ASPARTATE AMINO TRANSFERASE 10 U/L (10-37); BILIRUBIN,TOTAL 0.9 MG/DL (0.1-1.0); BLOOD UREA NITROGEN 29 MG/DL (7-18); BUN/CREATININE RATIO 22.5 (5.4-32.0); CALCIUM 8.4 MG/DL (8.5-10.1); CHLORIDE 111 MMOL/L (99-107); CREATININE 1.29 MG/DL (0.60-1.10); GLUCOSE 112 MG/DL (70-104); MAGNESIUM 2.2 MG/DL (1.5-2.4); SODIUM 147 MMOL/L (135-145); TOTAL CARBON DIOXIDE 26.9 MMOL/L (24-32); TOTAL PROTEIN 6.6 G/DL (6.4-8.2); eGFR 55 ML/MIN
--- NOTE | 2019-01-14 06:25 | NUR ---
Patient in room [facility] 347. I have received report from Thomas COHN and had the opportunity to ask questions and assume patient care.
--- NOTE | 2019-01-14 06:33 | NUR ---
Problems reprioritized. Patient report given, questions answered & plan of care reviewed with rodney Francis.
[2019-01-14 07:00] VITALS: BP 103/62
--- NOTE | 2019-01-14 07:52 | NUR ---
Per miter operator nurse report and medical record, patient's last BM was 01/09/19. Dr. Chaudhry notified about the last BM and I was asking about order for milk of magnesia and Dulcolax suppository for constipation
[2019-01-14] MEDS ORDERED: bisacodyl 10mg suppository rectal RC PRN (07:55)
[2019-01-14] MEDS ORDERED: magnesium hydroxide 30ml (MOM) UD suspension PO PRN (07:55)
[2019-01-14] MEDS: amiodarone 200mg tablet PO SCH (07:58)
[2019-01-14] MEDS: atorvastatin 10mg tablet PO SCH (07:58)
[2019-01-14] MEDS: aspirin 81mg tablet.DR PO SCH (07:58)
[2019-01-14] MEDS: metoprolol tartrate 12.5mg (1/2 tablet) PO SCH ×2 (07:58→20:59)
[2019-01-14] MEDS: dabigatran 150mg capsule PO SCH (08:00)
[2019-01-14] MEDS: K and/or MAG REPLACEMENT MC SCH (08:00)
[2019-01-14 11:00] VITALS: BP 115/66
--- NOTE | 2019-01-14 11:44 | NUR ---
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 Pt continues to have hematuria s/p TURP. Pt currently on regular diet with fluctuating PO intake overall averaging 75% with some 50% however now up to 100% meeting nutrient needs. LBM 01/09, PRN MoM and Dulcolax suppository just added to med list and pt given first dose of MoM today. No edema or wounds. No nutrition diagnosis at this time. Will continue to follow. Recommendations: 1) Continue regular diet 2) Continue bowel care; monitor need for additional 3) Wt per rx Addendum: 01/14/19 at [address] Amended: Links added.
--- NOTE | 2019-01-14 14:02 | NUR ---
Dr. Chaudhry notified about hematuria and was instructed not to hold the Pradaxa
--- NOTE | 2019-01-14 14:36 | NUR ---
Irrigated patient's gonzalez catheter 3x with sterile water, sterile water with urine was flowing back to the drainage tubing after flushing. Catheter was also repositioned. Balloon deflated, 30ml NS noted then reinflated with 30ml after repositioning the catheter. Charge nurse Madie mesa. Will monitor
--- NOTE | 2019-01-14 14:43 | NUR ---
reviewed nursing students physical assessment of pt
--- NOTE | 2019-01-14 14:45 | NUR ---
Dr. Hill has been notified about issues such as leaking and hematuria, gonzalez catheter was irrigated and observed for back flow as per his instruction.
--- NOTE | 2019-01-14 18:49 | NUR ---
Problems reprioritized. Patient report given, questions answered & plan of care reviewed with Thomas COHN.
--- NOTE | 2019-01-14 18:50 | NUR ---
Patient in room [facility] 347. I have received report from SUKI Coley and had the opportunity to ask questions and assume patient care.
[2019-01-14] MEDS: mirtazapine 15mg tablet PO SCH (20:57)
[2019-01-14] MEDS: lisinopril 20mg tablet PO SCH (20:58)
[2019-01-14] MEDS: terazosin 5mg capsule PO SCH (23:20)
--- NOTE | 2019-01-14 23:41 | NUR ---
Patient had been constipated. MOM given during the day shift and patent had a bowel movement at the beginning of my shift.He had been constipated up until this point. Last BM 01/09, will continue to make sure patient has regular bowel movements. Addendum: 01/14/19 at 2346 by Thomas Cheema RN Amended: Links added.
[2019-01-15] VITALS: BP 132/84
[2019-01-15] MEDS: sodium chloride 0.45% 1,000 ML IV SCH ×2 (02:57→14:02)
[2019-01-15 05:01] LABS: BASOPHILS % (AUTO) 0.4 % (0-1); EOSINOPHILS # (AUTO) 0.4 X10'3 (0-0.9); HEMOGLOBIN 11.4 g/dl (14.0-17.9); LYMPHOCYTES # (AUTO) 1.4 X10'3 (1.1-4.8); LYMPHOCYTES % (AUTO) 15.2 % (21-51); MEAN CORPUSCULAR HEMOGLOBIN 28.7 PG (27.0-31.0); MEAN CORPUSCULAR HGB CONC 32.5 g/dL (33.0-36.5); MEAN CORPUSCULAR VOLUME 88.3 FL (78-98); MEAN PLATELET VOLUME 7.5 FL (7.4-10.4); MONOCYTES # (AUTO) 1.1 X10'3 (0-0.9); MONOCYTES % (AUTO) 12.6 % (2-12); NEUTROPHILS # (AUTO) 6.1 X10'3 (1.8-7.7); NEUTROPHILS % (AUTO) 67.8 % (42-75); PLATELET COUNT 202 X10'3 (140-440); RED BLOOD COUNT 3.96 X10'6 (4.70-6.10); RED CELL DISTRIBUTION WIDTH 15.7 % (11.5-14.5); WHITE BLOOD COUNT 8.9 X10'3 (4.5-11.0)
[2019-01-15 05:28] LABS: ALANINE AMINOTRANSFERASE 13 U/L (12-78); ALBUMIN 2.7 G/DL (3.4-5.0); ALBUMIN/GLOBULIN RATIO 0.8 (1.1-1.5); ALKALINE PHOSPHATASE 75 IU/L (46-116); ANION GAP 10 (8-16); ASPARTATE AMINO TRANSFERASE 11 U/L (10-37); BILIRUBIN,TOTAL 0.7 MG/DL (0.1-1.0); BLOOD UREA NITROGEN 20 MG/DL (7-18); CHLORIDE 107 MMOL/L (99-107); GLUCOSE 105 MG/DL (70-104); POTASSIUM 3.9 MMOL/L (3.5-5.1); SODIUM 140 MMOL/L (135-145); TOTAL CARBON DIOXIDE 23.3 MMOL/L (24-32); TOTAL PROTEIN 6.3 G/DL (6.4-8.2); eGFR 73 ML/MIN
--- NOTE | 2019-01-15 06:30 | NUR ---
Problems reprioritized. Patient report given, questions answered & plan of care reviewed with SUKI Rockwell.
[2019-01-15 07:00] VITALS: BP 118/70
[2019-01-15] MEDS: amiodarone 200mg tablet PO SCH (07:56)
[2019-01-15] MEDS: atorvastatin 10mg tablet PO SCH (07:56)
[2019-01-15] MEDS: aspirin 81mg tablet.DR PO SCH (07:56)
[2019-01-15] MEDS: metoprolol tartrate 12.5mg (1/2 tablet) PO SCH ×2 (07:57→20:07)
[2019-01-15] MEDS: K and/or MAG REPLACEMENT MC SCH (08:00)
[2019-01-15 08:03] VITALS: BP 118/70
[2019-01-15 11:29] VITALS: BP 121/75
[2019-01-15 11:49] VITALS: BP 126/91
--- NOTE | 2019-01-15 19:01 | NUR ---
Patient in room [facility] 347. I have received report from Suzette COHN and had the opportunity to ask questions and assume patient care.
[2019-01-15 20:00] VITALS: BP 126/75
[2019-01-15] MEDS: lisinopril 20mg tablet PO SCH (20:06)
[2019-01-15] MEDS: terazosin 5mg capsule PO SCH (20:06)
[2019-01-15] MEDS: mirtazapine 15mg tablet PO SCH (20:06)
[2019-01-16] VITALS: BP 123/72
[2019-01-16] MEDS: sodium chloride 0.45% 1,000 ML IV SCH ×2 (00:01→09:49)
--- NOTE | 2019-01-16 06:25 | NUR ---
Problems reprioritized. Patient report given, questions answered & plan of care reviewed with Emeli COHN.
--- NOTE | 2019-01-16 06:30 | NUR ---
Patient in room [facility] 347. I have received report from SUKI Tariq and had the opportunity to ask questions and assume patient care.
[2019-01-16 07:00] VITALS: BP 126/82
[2019-01-16] MEDS: K and/or MAG REPLACEMENT MC SCH (08:00)
[2019-01-16] MEDS: atorvastatin 10mg tablet PO SCH (08:29)
[2019-01-16] MEDS: amiodarone 200mg tablet PO SCH (08:29)
[2019-01-16] MEDS: aspirin 81mg tablet.DR PO SCH (08:29)
[2019-01-16] MEDS: metoprolol tartrate 12.5mg (1/2 tablet) PO SCH ×2 (08:30→19:58)
[2019-01-16 10:13] LABS: BASOPHILS % (AUTO) 0.5 % (0-1); EOSINOPHILS # (AUTO) 0.3 X10'3 (0-0.9); EOSINOPHILS % (AUTO) 4.1 % (0-6); HEMATOCRIT 35.9 % (42.0-52.0); HEMOGLOBIN 11.9 g/dl (14.0-17.9); LYMPHOCYTES # (AUTO) 1.2 X10'3 (1.1-4.8); LYMPHOCYTES % (AUTO) 15.7 % (21-51); MEAN CORPUSCULAR HEMOGLOBIN 28.9 PG (27.0-31.0); MEAN CORPUSCULAR HGB CONC 33.1 g/dL (33.0-36.5); MEAN CORPUSCULAR VOLUME 87.3 FL (78-98); MEAN PLATELET VOLUME 7.9 FL (7.4-10.4); MONOCYTES # (AUTO) 0.9 X10'3 (0-0.9); NEUTROPHILS # (AUTO) 5.2 X10'3 (1.8-7.7); NEUTROPHILS % (AUTO) 67.7 % (42-75); PLATELET COUNT 217 X10'3 (140-440); RED BLOOD COUNT 4.11 X10'6 (4.70-6.10); RED CELL DISTRIBUTION WIDTH 15.4 % (11.5-14.5); WHITE BLOOD COUNT 7.7 X10'3 (4.5-11.0)
[2019-01-16 10:20] LABS: ALANINE AMINOTRANSFERASE 11 U/L (12-78); ALBUMIN 2.7 G/DL (3.4-5.0); ALBUMIN/GLOBULIN RATIO 0.7 (1.1-1.5); ALKALINE PHOSPHATASE 81 IU/L (46-116); ANION GAP 9 (8-16); ASPARTATE AMINO TRANSFERASE 13 U/L (10-37); BILIRUBIN,TOTAL 0.6 MG/DL (0.1-1.0); BLOOD UREA NITROGEN 14 MG/DL (7-18); BUN/CREATININE RATIO 13.5 (5.4-32.0); CALCIUM 8.4 MG/DL (8.5-10.1); CHLORIDE 108 MMOL/L (99-107); CREATININE 1.04 MG/DL (0.60-1.10); GLUCOSE 102 MG/DL (70-104); POTASSIUM 4.1 MMOL/L (3.5-5.1); SODIUM 142 MMOL/L (135-145); TOTAL CARBON DIOXIDE 25.4 MMOL/L (24-32); TOTAL PROTEIN 6.5 G/DL (6.4-8.2); eGFR 70 ML/MIN
--- NOTE | 2019-01-16 17:40 | NUR ---
Student documentation: I have reviewed all interventions, assessments performed and documented by Marquis PANG.
[2019-01-16 18:00] VITALS: BP 150/72
--- NOTE | 2019-01-16 18:24 | NUR ---
Problems reprioritized. Patient report given, questions answered & plan of care reviewed with SUKI Valdes.
[2019-01-16 21:45] VITALS: BP 141/81
[2019-01-16] MEDS: mirtazapine 15mg tablet PO SCH (21:50)
[2019-01-16] MEDS: terazosin 5mg capsule PO SCH (21:50)
[2019-01-16] MEDS: lisinopril 20mg tablet PO SCH (21:50)
[2019-01-17] VITALS: BP 144/78
--- NOTE | 2019-01-17 06:41 | NUR ---
Patient in room [facility] 347. I have received report from Keisha Rapp RN and had the opportunity to ask questions and assume patient care.
--- NOTE | 2019-01-17 06:41 | NUR ---
Problems reprioritized. Patient report given, questions answered & plan of care reviewed with SUKI Sainz.
--- NOTE | 2019-01-17 06:45 | NUR ---
Patient in room [facility] 347. I have received report from SUKI Roche and had the opportunity to ask questions and assume patient care.
[2019-01-17 07:00] VITALS: BP 129/74
[2019-01-17] MEDS: K and/or MAG REPLACEMENT MC SCH (07:58)
[2019-01-17] MEDS: metoprolol tartrate 12.5mg (1/2 tablet) PO SCH ×2 (08:00→20:20)
[2019-01-17] MEDS: aspirin 81mg tablet.DR PO SCH (08:00)
[2019-01-17] MEDS: amiodarone 200mg tablet PO SCH (08:00)
[2019-01-17] MEDS: atorvastatin 10mg tablet PO SCH (08:00)
[2019-01-17 11:00] VITALS: BP 107/77
--- NOTE | 2019-01-17 15:43 | NUR ---
FC DC'd at 1510, pt tolerated well. Urinal provided and pt encouraged to void. Will continue to monitor.
--- NOTE | 2019-01-17 18:44 | NUR ---
Received report from Emeli COHN pt is finsihed with dinner, on RA, in no apparent distress, bed alarm on
--- NOTE | 2019-01-17 18:46 | NUR ---
Problems reprioritized. Patient report given, questions answered & plan of care reviewed with SUKI Dawn.
[2019-01-17 19:00] VITALS: BP 129/69
--- NOTE | 2019-01-17 19:35 | NUR ---
pt had incontinent void, bladder scanned after cleaning pt, he had 130 left in his bladder
[2019-01-17] MEDS: lisinopril 20mg tablet PO SCH (21:37)
[2019-01-17] MEDS: mirtazapine 15mg tablet PO SCH (21:37)
[2019-01-17] MEDS: terazosin 5mg capsule PO SCH (21:37)
[2019-01-18 00:30] VITALS: BP 157/82
--- NOTE | 2019-01-18 04:55 | NUR ---
bladder scanned pt, pt only had 72mL
--- NOTE | 2019-01-18 06:06 | NUR ---
Gave report to Emeli COHN, pt is resting on RA, call light and items of freq use within reach. in no apparent distress,
--- NOTE | 2019-01-18 06:30 | NUR ---
Patient in room [facility] 347. I have received report from SUKI Dao and had the opportunity to ask questions and assume patient care.
[2019-01-18 07:00] VITALS: BP 100/58
[2019-01-18] MEDS: amiodarone 200mg tablet PO SCH (07:24)
[2019-01-18] MEDS: metoprolol tartrate 12.5mg (1/2 tablet) PO SCH ×2 (07:24→20:32)
[2019-01-18] MEDS: aspirin 81mg tablet.DR PO SCH (07:24)
[2019-01-18] MEDS: atorvastatin 10mg tablet PO SCH (07:24)
[2019-01-18] MEDS: K and/or MAG REPLACEMENT MC SCH (08:00)
[2019-01-18 10:48] VITALS: BP_SYST 89; BP_SYST 94; BP_DIAS 58; BP_DIAS 64
[2019-01-18 18:00] VITALS: BP 155/71
--- NOTE | 2019-01-18 18:32 | NUR ---
Patient in room [facility] 347. I have received report from Emeli COHN and had the opportunity to ask questions and assume patient care. Patient is watching base ball and shows no sign of distress.
--- NOTE | 2019-01-18 18:39 | NUR ---
Problems reprioritized. Patient report given, questions answered & plan of care reviewed with SUKI Russell.
[2019-01-18 19:00] VITALS: BP 155/71
[2019-01-18] MEDS: terazosin 5mg capsule PO SCH (20:31)
[2019-01-18] MEDS: mirtazapine 15mg tablet PO SCH (20:31)
[2019-01-18] MEDS: lisinopril 20mg tablet PO SCH (20:32)
[2019-01-18 23:30] VITALS: BP 148/76
--- NOTE | 2019-01-19 06:52 | NUR ---
Problems reprioritized. Patient report given, questions answered & plan of care reviewed with Brijesh COHN.
[2019-01-19 07:00] VITALS: BP 90/60
--- NOTE | 2019-01-19 07:04 | NUR ---
Patient in room [facility] 347. I have received report from Yvonne COHN and had the opportunity to ask questions and assume patient care.
[2019-01-19] MEDS: metoprolol tartrate 12.5mg (1/2 tablet) PO SCH ×2 (07:52→20:18)
[2019-01-19] MEDS: aspirin 81mg tablet.DR PO SCH (07:54)
[2019-01-19] MEDS: atorvastatin 10mg tablet PO SCH (07:54)
[2019-01-19] MEDS: K and/or MAG REPLACEMENT MC SCH (08:00)
[2019-01-19 11:00] VITALS: BP 122/77
[2019-01-19] MEDS: amiodarone 200mg tablet PO SCH (11:04)
--- NOTE | 2019-01-19 12:31 | NUR ---
Patient insisted that he can go home, patient dressed up and called the friend/caregiver Coty. Caregiver Coty came stating that she will take the patient with her. Coty denies having the power of seating captain to make decision for the patient. Patient is alert, confused and forgetful at times. Explained to patient that the Member Certification Manager is working on getting him placed into the [facility]. Loom Technician Vera was contacted by SHELLEY Muñiz to let her know of the situation. Charge nurse Avril aware of the situation, she paged Dr. Cheng about the patient wanted to leave. SHELLEY Muñiz were able to convince the patient and the caregiver Coty to stay after several minutes of conversation
--- NOTE | 2019-01-19 18:28 | NUR ---
Problems reprioritized. Patient report given, questions answered & plan of care reviewed with Wayne COHN.
[2019-01-19 18:40] VITALS: BP 141/81
[2019-01-19] MEDS: terazosin 5mg capsule PO SCH (20:18)
[2019-01-19] MEDS: mirtazapine 15mg tablet PO SCH (20:18)
[2019-01-19] MEDS: lisinopril 20mg tablet PO SCH (20:19)
[2019-01-20] VITALS: BP 146/77
--- NOTE | 2019-01-20 06:29 | NUR ---
Problems reprioritized. Patient report given, questions answered & plan of care reviewed with CATALINO. Addendum: 01/20/19 at 0630 by Sid Rivera RN Amended: Links added.
[2019-01-20 08:00] VITALS: BP 134/79
[2019-01-20] MEDS: K and/or MAG REPLACEMENT MC SCH (08:00)
[2019-01-20] MEDS: aspirin 81mg tablet.DR PO SCH (08:42)
[2019-01-20] MEDS: atorvastatin 10mg tablet PO SCH (08:43)
[2019-01-20] MEDS: amiodarone 200mg tablet PO SCH (08:43)
[2019-01-20] MEDS: metoprolol tartrate 12.5mg (1/2 tablet) PO SCH (08:43)
[2019-01-20 11:00] VITALS: BP 119/83
--- NOTE | 2019-01-20 12:13 | NUR ---
Received report from Libby, student RN.
--- NOTE | 2019-01-20 13:22 | NUR ---
Patient discharged home via personal vehicle with caregiver. Escorted from unit via wheelchair with x1 hospital staff. Educated patient and caregiver regarding disease process, community resources, medication management, and symptom management. Patient and caregiver verbalized understanding and demonstrated teachback. Patient confirmed he had all belongings with him. Patient and caregiver stated that they would follow up with the primary care provider within 1 week.
--- NOTE | 2019-01-20 13:24 | NUR ---
Student documentation: I have reviewed and agree with all interventions, assessments performed and documented by Hafsa Ruano.
--- NOTE | 2019-01-20 17:05 | NUR ---
reviewed student documentation
== END 2019-01-20 13:04 | disposition home health service (06) | DRG 919 ==
LOC: EEVIPCON 10:21 → ER 10:21 → EEVIPCON 14:42 → ED HOLD 14:42 → MED 3N 20:15 → CMPBEDREQ 01-13 17:58 → SUR 3N 01-13 21:55
PROVIDERS: ADMIT Family Medicine; ATTEND Family Medicine
DX: N99.821 Postprocedural hemorrhage of a genitourinary system organ or structure following other procedure (principal); G93.41 Metabolic encephalopathy; I50.22 Chronic systolic (congestive) heart failure; N39.0 Urinary tract infection, site not specified; N17.9 Acute kidney failure, unspecified; N13.8 Other obstructive and reflux uropathy; I48.20 Chronic atrial fibrillation, unspecified; G93.49 Other encephalopathy; D68.32 Hemorrhagic disorder due to extrinsic circulating anticoagulants; R31.9 Hematuria, unspecified; N40.1 Benign prostatic hyperplasia with lower urinary tract symptoms; N18.9 Chronic kidney disease, unspecified; I48.91 Unspecified atrial fibrillation; N13.9 Obstructive and reflux uropathy, unspecified; E78.5 Hyperlipidemia, unspecified; F03.90 Unspecified dementia, unspecified severity, without behavioral disturbance, psychotic disturbance, mood disturbance, and anxiety; T45.515A Adverse effect of anticoagulants, initial encounter; F43.10 Post-traumatic stress disorder, unspecified; I25.10 Atherosclerotic heart disease of native coronary artery without angina pectoris; Y83.8 Other surgical procedures as the cause of abnormal reaction of the patient, or of later complication, without mention of misadventure at the time of the procedure; I25.2 Old myocardial infarction; Z79.82 Long term (current) use of aspirin; Z87.891 Personal history of nicotine dependence; Z91.419 Personal history of unspecified adult abuse; Z87.820 Personal history of traumatic brain injury; Z95.1 Presence of aortocoronary bypass graft; Z59.0 Homelessness; Z89.022 Acquired absence of left finger(s); Y92.89 Other specified places as the place of occurrence of the external cause
CPT/HCPCS: 36415; 71045; 80053; 81001; 83735; 83880; 84484; 85025; 87077; 87081; 87088; 93005; 97161; 97530; 99285; G0378; J0696; J1940; J2405; J7030